=== PATIENT | male | born 1985 | race African-American/Black ===

== ENCOUNTER 2017-06-08 00:15 | Emergency (ER) | payer MEDICARE, OTHER ==
[~2017-06-08] VITALS: Ht 167.6 cm; Wt 100.0 kg
[~2017-06-08 00:15] MED LIST: BENZ0.5T PO; BENZ2 PO; CARB200T16 PO; HALO10 PO; HALO2CON PO; HALO5 PO; [UNRECOGNIZED DRUG - CODE] IM
[2017-06-08 00:17] VITALS: BP 142/72; PULSE 85; RESP 16; TEMP 98.4; O2SAT 96
[2017-06-08] MEDS ORDERED: HALO5TAB PO (00:32)
[2017-06-08] MEDS ORDERED: BENZ0.5T PO ×2 (00:32)
[2017-06-08] MEDS ORDERED: HALO10TA PO (00:32)
[2017-06-08] MEDS ORDERED: BACT800T5 PO (00:34)
--- NOTE | 2017-06-08 00:35 | PD ---
HPI Chief Complaint: Skin Problem Time Seen by Provider: 00:26 Travel History International Travel<30 days: No Contact w/Intl Traveler<30days: No Traveled to known affect area: No History of Present Illness HPI This is a 31-year-old male who presents to the emergency department with 1 week of a lump on his lower abdomen, constant, moderate severity, painful, with no drainage. He also had something on his back which is no longer there. He denies any fevers or chills. He says he feels like something is moving around inside his abdomen. PFSH Past Medical History Arthritis: No Asthma: Yes (CHILDHOOD) Anxiety: Yes Depression: Yes Heart Rhythm Problems: No High Cholesterol: No Chest Pain: No Congestive Heart Failure: No COPD: No Cerebrovascular Accident: No Diminished Hearing: No Endocrine: No GERD: No Genitourinary: No Hiatal Hernia: No Immune Disorder: No Musculoskeletal: No Neurologic: No Reproductive: No Respiratory: No Immunizations Current: Yes Migraines: No Schizophrenia: Yes Sleep Apnea: No Ulcer: No Past Surgical History Abdominal Surgery: No Cardiac Surgery: No Ear Surgery: No Endocrine Surgery: No Eye Surgery: No Genitourinary Surgery: No Gynecologic Surgery: No Oral Surgery: No Thoracic Surgery: No Other Surgery: Yes (SEE JPOD NOTES) Social History Alcohol Use: Yes (SOCC) Tobacco Use: Yes (1 PPD) Substance Use: Yes (WEED) Allergies-Medications (Allergen,Severity, Reaction): Coded Allergies: No Known Allergies (Verified Adverse Reaction, Unknown, 06/08/17) Reported Meds & Prescriptions Reported Meds & Active Scripts Active Benztropine Mesylate 2 Mg Tab 2 Mg PO HS 30 Days Haldol (Haloperidol) 10 Mg Tab 10 Mg PO HS 30 Days Reported Cogentin (Benztropine Mesylate) 0.5 Mg Tab 0.5 Mg PO BID Haldol (Haloperidol) 5 Mg Tab 5 Mg PO BID Review of Systems General / Constitutional: No: Fever, Chills Respiratory: No: Cough, Shortness of Breath Physical Exam Narrative GENERAL: Well-appearing, no acute distress, nontoxic SKIN: 3 cm indurated area on the right lower abdomen with some warmth HEAD: Atraumatic. Normocephalic. ENT: No nasal bleeding or discharge. Moist mucous membranes MUSCULOSKELETAL: No obvious deformities. No clubbing. No cyanosis. No edema. NEUROLOGICAL: Awake and alert. No obvious cranial nerve deficits. Motor grossly within normal limits. Normal speech. PSYCHIATRIC: Appropriate mood and affect; insight and judgment normal. Data Data Last Documented VS Vital Signs Date Time Temp Pulse Resp B/P (MAP) Pulse Ox O2 Delivery O2 Flow Rate FiO2 06/08/17 00:17 98.4 85 16 142/72 (95) 96 Room Air MDM Medical Decision Making Medical Screen Exam Complete: Yes Emergency Medical Condition: Yes Interpretation(s) Afebrile, no tachycardia, hypertensive Differential Diagnosis Abscess, folliculitis, cellulitis Narrative Course This is a 51-year-old male who presents to the emergency department with a small area of induration on the right lower abdomen which appears to be a folliculitis. I don't think it's large enough for incision and drainage. I think he benefit from some oral antibiotic therapy and topical warm compresses. I do think the patient's baseline psychiatric disease as contributing to his presentation here as he is fairly insistent that something may be moving around inside him and he wants me to take a picture of it. I reassured him that I think with warm compresses and antibiotic therapy this will improve. Diagnosis Primary Impression: Folliculitis Patient Instructions: General Instructions Additional Instructions: If you develop fever, increasing redness, warmth, or spreading of your infection , or severe pain return to the emergency department immediately as you may require antibiotics through your IV. Complete your course of antibiotics as prescribed. Apply a warm wash cloth four times per day to your lump. Med/Other Pt SpecificInfo: Prescription(s) given Scripts Sulfamethoxazole-Trimethoprim (Bactrim DS) 800-160 Mg Tab 1 TAB PO BID for Infection, #14 TAB 0 Refills Prov: Diamante Burnette MD 06/08/17 Disposition: 01 DISCHARGE HOME Condition: Stable Diamante Burnette MD Jun 08, 2017 00:35
== END 2017-06-08 00:47 | disposition home or self-care (01) ==
LOC: NEPD 00:15
DX: L73.9 Follicular disorder, unspecified (principal); F20.9 Schizophrenia, unspecified; J45.909 Unspecified asthma, uncomplicated; F41.9 Anxiety disorder, unspecified; F17.200 Nicotine dependence, unspecified, uncomplicated; Z79.899 Other long term (current) drug therapy
CPT/HCPCS: 99283

== ENCOUNTER 2017-07-11 10:24 | Inpatient (IN) | payer MEDICARE, OTHER ==
[~2017-07-11] VITALS: Ht 167.6 cm; Wt 93.8 kg
[~2017-07-11 10:24] MED LIST changes: +BACT800T5 PO; -BENZ2 PO; -HALO10 PO; +HALO10TA PO; -HALO5 PO; +HALO5TAB PO
[2017-07-11 10:27] VITALS: BP 158/94; PULSE 91; RESP 24; TEMP 98.1; O2SAT 97
--- NOTE | 2017-07-11 10:55 | PD ---
HPI Chief Complaint: Psychiatric Symptoms Time Seen by Provider: 10:47 Travel History International Travel<30 days: No Contact w/Intl Traveler<30days: No Traveled to known affect area: No History of Present Illness HPI 31-year-old male presents to emergency department with hallucinations and medication noncompliance. Patient denies any trauma, falls, loss of consciousness. When asked directly about his hallucinations patient states that "just because somebody is not the room doesn't mean that they're not talking." Patient says that nobody made him come today. Patient denies any recent illicit drugs. Patient is apparently off of his medications but is unable tell me what they are. Patient states that he might be taking Haldol and Cogentin. Patient denies fever, chills, chest pain, short of breath. Denies falls or any trauma. Denies any other issues. It is difficult to elicit history as patient is a fluctuating historian. PFSH Past Medical History Arthritis: No Asthma: Yes (CHILDHOOD) Anxiety: Yes Depression: Yes Heart Rhythm Problems: No High Cholesterol: No Chest Pain: No Congestive Heart Failure: No COPD: No Cerebrovascular Accident: No Diminished Hearing: No Endocrine: No GERD: No Genitourinary: No Hiatal Hernia: No Immune Disorder: No Musculoskeletal: No Neurologic: No Reproductive: No Respiratory: No Immunizations Current: Yes Migraines: No Schizophrenia: Yes Sleep Apnea: No Ulcer: No Past Surgical History Abdominal Surgery: No Cardiac Surgery: No Ear Surgery: No Endocrine Surgery: No Eye Surgery: No Genitourinary Surgery: No Gynecologic Surgery: No Oral Surgery: No Thoracic Surgery: No Other Surgery: Yes (SEE JPOD NOTES) Social History Alcohol Use: Yes (SOCC) Tobacco Use: Yes (1 PPD) Substance Use: Yes (WEED) Allergies-Medications (Allergen,Severity, Reaction): Coded Allergies: No Known Allergies (Verified Allergy, Unknown, 07/11/17) Reported Meds & Prescriptions Reported Meds & Active Scripts Active Reported Haloperidol 5 Mg Tab 5 Mg PO BID Benztropine (Benztropine Mesylate) 0.5 Mg Tab 0.5 Mg PO BID Review of Systems Except as stated in HPI: all other systems reviewed are Neg Physical Exam Narrative GENERAL: Well-developed well nourished in no apparent distress, frequent tics SKIN: Focused skin assessment warm/dry. HEAD: Atraumatic. Normocephalic. EYES: Pupils equal and round. No scleral icterus. No injection or drainage. EOMI ENT: No nasal bleeding or discharge. Mucous membranes pink and moist. Pharynx not injected, without tonsillar hypertrophy or exudates. NECK: Trachea midline. No JVD. CARDIOVASCULAR: Regular rate and rhythm. No murmur appreciated. RESPIRATORY: No accessory muscle use. Clear to auscultation. Breath sounds equal bilaterally. MUSCULOSKELETAL: No obvious deformities. No clubbing. No cyanosis. No edema. NEUROLOGICAL: Awake and alert. No obvious cranial nerve deficits. Motor grossly within normal limits. Normal speech. PSYCHIATRIC: Appropriate mood. Data Data Last Documented VS Vital Signs Date Time Temp Pulse Resp B/P (MAP) Pulse Ox O2 Delivery O2 Flow Rate FiO2 07/11/17 13:43 98.8 80 18 155/105 (122) 98 Room Air Orders Orders Complete Blood Count With Diff (07/11/17 10:55) Comprehensive Metabolic Panel (07/11/17 10:55) Thyroid Stimulating Hormone (07/11/17 10:55) Urinalysis - C+S If Indicated (07/11/17 10:55) Psych Screen (07/11/17 10:55) Drug Screen, Random Urine (07/11/17 10:55) Haloperidol (Haldol) (07/11/17 13:30) Diphenhydramine (Benadryl) (07/11/17 13:30) Diet Regular Basic (07/11/17 Dinner) Admit Order (Ed Use Only) (07/11/17 ) Labs Laboratory Tests Test 07/11/17 11:16 07/11/17 11:24 White Blood Count 10.1 TH/MM3 Red Blood Count 5.18 MIL/MM3 Hemoglobin 15.9 GM/DL Hematocrit 45.3 % Mean Corpuscular Volume 87.5 FL Mean Corpuscular Hemoglobin 30.7 PG Mean Corpuscular Hemoglobin Concent 35.1 % Red Cell Distribution Width 13.8 % Platelet Count 265 TH/MM3 Mean Platelet Volume 8.8 FL Neutrophils (%) (Auto) 63.4 % Lymphocytes (%) (Auto) 25.4 % Monocytes (%) (Auto) 8.6 % Eosinophils (%) (Auto) 1.7 % Basophils (%) (Auto) 0.9 % Neutrophils # (Auto) 6.4 TH/MM3 Lymphocytes # (Auto) 2.6 TH/MM3 Monocytes # (Auto) 0.9 TH/MM3 Eosinophils # (Auto) 0.2 TH/MM3 Basophils # (Auto) 0.1 TH/MM3 CBC Comment DIFF FINAL Differential Comment Blood Urea Nitrogen 8 MG/DL Creatinine 0.96 MG/DL Random Glucose 91 MG/DL Total Protein 8.1 GM/DL Albumin 4.7 GM/DL Calcium Level 9.2 MG/DL Alkaline Phosphatase 56 U/L Aspartate Amino Transf (AST/SGOT) 36 U/L Alanine Aminotransferase (ALT/SGPT) 41 U/L Total Bilirubin 0.5 MG/DL Sodium Level 139 MEQ/L Potassium Level 3.6 MEQ/L Chloride Level 105 MEQ/L Carbon Dioxide Level 26.1 MEQ/L Anion Gap 8 MEQ/L Estimat Glomerular Filtration Rate 112 ML/MIN Thyroid Stimulating Hormone 3rd Gen 2.400 uIU/ML Urine Color YELLOW Urine Turbidity CLEAR Urine pH 6.5 Urine Specific [place] 1.016 Urine Protein 100 mg/dL Urine Glucose (UA) NEG mg/dL Urine Ketones NEG mg/dL Urine Occult Blood SMALL Urine Nitrite NEG Urine Bilirubin NEG Urine Urobilinogen LESS THAN 2.0 MG/DL Urine Leukocyte Esterase NEG Urine RBC 1 /hpf Urine WBC LESS THAN 1 /hpf Urine Hyaline Casts 12 /lpf Urine Mucus FEW /lpf Microscopic Urinalysis Comment CULT NOT INDICATED Urine Opiates Screen NEG Urine Barbiturates Screen NEG Urine Amphetamines Screen NEG Urine Benzodiazepines Screen NEG Urine Cocaine Screen NEG Urine Cannabinoids Screen POS MDM Medical Decision Making Medical Screen Exam Complete: Yes Emergency Medical Condition: Yes Differential Diagnosis Medication noncompliance, schizophrenia, depression, and anxiety Narrative Course 31-year-old male presents to emergency department with hallucinations and medication noncompliance. Patient denies any trauma, falls, loss of consciousness. When asked directly about his hallucinations patient states that "just because somebody is not the room doesn't mean that they're not talking." Patient says that nobody made him come today. Patient denies any recent illicit drugs. Patient is apparently off of his medications but is unable tell me what they are. Patient states that he might be taking Haldol and Cogentin. Patient denies fever, chills, chest pain, short of breath. Denies falls or any trauma. Denies any other issues. It is difficult to elicit history as patient is a fluctuating historian. Vital signs stable Physical exam findings unremarkable. Patient was transferred to the psych department and became increasingly agitated. Patient required medication for sedation Benadryl and Haldol as he became increasingly agitated. There was a concern for patient's safety along with the staff safety. Patient eventually required a Vu Act to ensure his own safety. Patient was reported to be walking around the emergency department disrobed. CBC & BMP Diagram 07/11/17 11:16 Total Protein 8.1, Albumin 4.7, Calcium Level 9.2, Alkaline Phosphatase 56, Aspartate Amino Transf (AST/SGOT) 36, Alanine Aminotransferase (ALT/SGPT) 41, Total Bilirubin 0.5 Patient is cleared to see psych. Diagnosis Primary Impression: Noncompliance with medications Condition: Stable Mel Polanco Jul 11, 2017 10:55
[2017-07-11 11:32] LABS: AUTOMATED NEUTROPHIL # 6.4 TH/MM3 (1.8-7.7); BASOPHIL # 0.1 TH/MM3 (0-0.2); BASOPHIL % 0.9 % (0.0-2.0); EOSINOPHIL # 0.2 TH/MM3 (0-0.4); EOSINOPHIL % 1.7 % (0.0-4.0); HEMATOCRIT 45.3 % (39.0-51.0); HEMO FLAGS DIFF FINAL; LYMPH % 25.4 % (9.0-44.0); LYMPHOCYTE # 2.6 TH/MM3 (1.0-4.8); MEAN CELL VOLUME 87.5 FL (80.0-100.0); MEAN CORPUSCULAR HEMOGLOBIN 30.7 PG (27.0-34.0); MEAN CORPUSCULAR HGB CONC 35.1 % (32.0-36.0); MONO % 8.6 % (0.0-8.0); NEUT % 63.4 % (16.0-70.0); PLATELET COUNT 265 TH/MM3 (150-450); RED BLOOD COUNT 5.18 MIL/MM3 (4.50-5.90); RED CELL DISTRIBUTION WIDTH 13.8 % (11.6-17.2); WHITE BLOOD COUNT 10.1 TH/MM3 (4.0-11.0)
[2017-07-11 11:46] LABS: BLOOD, URINE SMALL (NEG); COMMENT (UR) CULT NOT INDICATED; CULTURE IF INDICATED CULT NOT INDICATED; GLUCOSE,URINE NEG (NEG); HYALINE CAST, URINE 12 /lpf (RARE); KETONE, URINE NEG (NEG); MUCUS URINE FEW /lpf (OCC); NITRITE,URINE NEG (NEG); PH, URINE 6.5 (5.0-8.5); URINE COLOR YELLOW (YELLW/STRAW)
[2017-07-11 11:48] LABS: ALT (GPT) 41 U/L (12-78); ANION GAP 8 MEQ/L (5-15); AST (GOT) 36 U/L (15-37); BICARBONATE 26.1 MEQ/L (21.0-32.0); BLOOD UREA NITROGEN 8 MG/DL (7-18); CHLORIDE 105 MEQ/L (98-107); GLOMERULAR FILTRATION RATE 112 ML/MIN (>89); POTASSIUM 3.6 MEQ/L (3.5-5.1); SODIUM (NA) 139 MEQ/L (136-145)
[2017-07-11 11:57] LABS: ALKALINE PHOSPHATASE 56 U/L (45-117); TOTAL BILIRUBIN ADULT 0.5 MG/DL (0.2-1.0)
[2017-07-11] MEDS ORDERED: HALOPERIDOL 10 MG TAB PO ONE (13:30)
[2017-07-11] MEDS ORDERED: diphenhydrAMINE HCL 50 MG CAP PO ONE (13:30)
[2017-07-11 13:43] VITALS: BP 155/105; PULSE 80; RESP 18; TEMP 98.8; O2SAT 98
[2017-07-11] MEDS: BENZTROPINE MESYLATE 1 MG TAB PO SCH (21:00)
[2017-07-11] MEDS: HALOPERIDOL 5 MG TAB PO SCH (21:00)
[2017-07-11] MEDS ORDERED: PILL SPLITTER OTHER PRN (21:00)
[2017-07-11 21:25] VITALS: BP 148/88; PULSE 55; RESP 16; TEMP 98.2; O2SAT 97
[2017-07-12 06:23] VITALS: BP 133/90; PULSE 54; RESP 16; TEMP 98.6; O2SAT 100
[2017-07-12] MEDS: BENZTROPINE MESYLATE 1 MG TAB PO SCH ×2 (08:33→21:26)
[2017-07-12] MEDS: HALOPERIDOL 5 MG TAB PO SCH ×2 (08:34→21:26)
[2017-07-12] MEDS ORDERED: diphenhydrAMINE HCL 50 MG CAP PO PRN (15:15)
[2017-07-12] MEDS ORDERED: hydrOXYzine HCL 50 MG TAB PO PRN (15:15)
[2017-07-12] MEDS ORDERED: ACETAMINOPHEN 325 MG TAB PO PRN (15:15)
[2017-07-12] MEDS ORDERED: MAGNESIUM HYDROXIDE SUSP 30 ML CUP PO PRN (15:15)
[2017-07-12] MEDS ORDERED: ALUMINUM/MAGNESIUM/SIMETH 30 ML CUP PO PRN (15:15)
--- NOTE | 2017-07-12 15:40 | HHI.HP ---
Provisional Diagnosis Admission Date Jul 11, 2017 at 15:58 [place]. Schizoaffective disorder bipolar type, marijuana abuse Certification of Person's Competence To Provide Express and Informed Consent I have personally examined Kevin Alicia , a person being served at [facility] on, Jul 12, 2017 15:31. Express and informed consent means consent voluntarily given in writing, by a competent person, after sufficient explanation and disclosure of the subject matter involved to enable the person to make a knowing and willful decision without any element of force, fraud, deceit, duress, or other form of constraint or coercion. This person is 18 years of age or older, is not now known to be incompetent to consent to treatment with a guardian advocate, and does not have a health care surrogate or proxy currently making medical treatment decisions. I have found this person to be one of the following: [] Competent to provide express and informed consent, as defined above, for voluntary admission to this facility and is competent to provide express and informed consent for treatment. He/she has the consistent capacity to make well reasoned, willful, and knowing decisions concerning his or her medical or mental health treatment. The person fully and consistently understands the purpose of the admission for examination/placement and is fully capable of personally exercising all rights [place] [] Incompetent to provide express and informed consent to voluntary admission, and this is incompetent to provide express and informed consent to treatment. The person must be transferred to involuntary status and a petition for a guardian advocate filed with the Circuit Court. [xxx] Refusing to provide express and informed consent to voluntary admission but is competent to provide express and informed consent for treatment. The person must be discharged or transferred to involuntary status. Form shall be completed within 24 hours of a person's arrival at the receiving facility and filed in the clinical record of each person: 1. Admitted on a voluntary basis 2. Permitted to provide express and informed consent to his/her own treatment 3. Allowed to transfer from involuntary to voluntary status 4. Prior to permitting a person to consent to his or her own treatment after having been previously found incompetent to consent to treatment. History of Present Illness Capacity: Lacks Capacity (patient less capacity significant for admission patient has capacity to sign for medication) HPI Patient is a 31-year-old well-known post multiple prior contacts and she under Vu act at [facility] services [place] by Dr. woodson dated March 11 1:30 PM stating patient does not answer pertinent questions not taking medication potential harm to self and others. And screened in the ED urine tox positive positive for marijuana. At the present time patient laying quietly in his room [id number] nurse having present throughout session patient did recognize me from prior contacts. Continues been home since getting out of [facility] in August has some contact with his mother but he states he lives with his girlfriend. It appears she has been noncompliant with medications he says it doesn't like the way it slows him. Acknowledges, somewhat reluctantly, frequent use of marijuana. He is vague about other drug use. He is vague about any auditory hallucinations. But appears to be responding to internal stimuli. He does denies suicidality homicidality. At the present time patient does meet criteria for involuntary psychiatric hospitalization of the Vu act I'll do first opinion request second opinion. I feel he does have capacity to sign for medication. Hopeless via short stay with him stabilizing with medications in a firm through to follow-up through [facility] act Review of Systems Constitutional: DENIES: Diaphoretic episodes, Fatigue, Fever, Weight gain, Weight loss, Chills, Dizziness, Change in appetite, Night Sweats Endocrine: DENIES: Heat/cold intolerance, Polydipsia, Polyuria, Polyphagia Eyes: DENIES: Blurred vision, Diplopia, Eye inflammation, Eye pain, Vision loss , Photosensitivity, Double Vision Ears, nose, mouth, throat: DENIES: Tinnitus, Hearing loss, Vertigo, Nasal discharge, Oral lesions, Throat pain, Hoarseness, Ear Pain, Running Nose, Epistaxis, Sinus Pain, Toothache, Odynophagia Respiratory: DENIES: Apneas, Cough, Snoring, Wheezing, Hemoptysis, Sputum production, Shortness of breath Cardiovascular: DENIES: Chest pain, Palpitations, Syncope, Dyspnea on Exertion , PND, Lower Extremity Edema, Orthopnea, Claudication Gastrointestinal: DENIES: Abdominal pain, Black stools, Bloody stools, Constipation, Diarrhea, Nausea, Vomiting, Difficulty Swallowing, Anorexia Genitourinary: DENIES: Sexual dysfunction, Urinary frequency, Urinary incontinence, Urgency, Hematuria, Dysuria, Nocturia, Penile Discharge, Testicular Pain, Testicular Swelling Musculoskeletal: DENIES: Joint pain, Muscle aches, Stiffness, Joint Swelling, Back pain, Neck pain Integumentary: DENIES: Abnormal pigmentation, Nail changes, Pruritus, Rash Hematologic/lymphatic: DENIES: Bruising, Lymphadenopathy Immunologic/allergic: DENIES: Eczema, Urticaria Neurologic: DENIES: Abnormal gait, Headache, Localized weakness, Paresthesias, Seizures, Speech Problems, Tremor, Poor Balance Psychiatric: COMPLAINS OF: Hallucinations (vague auditory) Past Psych History Psychological trauma history Patient denies Violence risk - others (6 mos) Local appears somewhat vigilant and paranoid Violence risk - self (6 mos) Low Substance Abuse History Drugs/Alcohol past 12 months Patient chronic marijuana user Past Family Social History Coded Allergies: No Known Allergies (Verified Allergy, Unknown, 07/11/17) Reported Medications Haloperidol (Haloperidol) 5 Mg Tab, 5 MG PO BID, TAB 0 Refills 06/08/17 Benztropine (Benztropine) 0.5 Mg Tab, 0.5 MG PO BID, #60 TAB 0 Refills 06/08/17 Discontinued Reported Medications Haloperidol (Haloperidol) 10 Mg Tab, 10 MG PO HS, TAB 0 Refills 06/08/17 Benztropine (Benztropine) 0.5 Mg Tab, 2 MG PO HS, #30 TAB 0 Refills 06/08/17 Discontinued Scripts Sulfamethoxazole-Trimethoprim (Bactrim DS) 800-160 Mg Tab, 1 TAB PO BID for Infection, #14 TAB 0 Refills Prov:Diamante Burnette MD 06/08/17 Current Medications Medications (Trade) Dose Ordered Sig/Sanya Route Start Time Stop Time Status Last Admin (Cogentin) 0.5 mg BID PO 07/11/17 21:00 07/12/17 08:33 (Haldol) 5 mg BID PO 07/11/17 21:00 07/12/17 08:34 (Pill Splitter) 1 ea UNSCH PRN OTHER 07/11/17 21:00 (Benadryl) 50 mg HS PRN PO 07/12/17 15:15 (Tylenol) 650 mg Q4H PRN PO 07/12/17 15:15 (Milk Of Magnesia Liq) 30 ml DAILY PRN PO 07/12/17 15:15 (Mag-Al Plus Susp Liq) 30 ml Q6H PRN PO 07/12/17 15:15 (Atarax) 50 mg Q6H PRN PO 07/12/17 15:15 Family Psych History Patient denies Social History Is Britta girlfriend long history mental illness Patient's Strengths (min. 2) Patient verbal labile axis health care Physical Exam Patient seen screened in ED exam reviewed and agreed with. Patient sitting quietly in his room he is in no acute distress, no rash or distress, no complaints abdominal pain, patient was all 4 extremities without difficulty. No abnormal motor movements noted Vital Signs Vital Signs Date Time Temp Pulse Resp B/P (MAP) Pulse Ox O2 Delivery O2 Flow Rate FiO2 07/12/17 06:23 98.6 54 16 133/90 (104) 100 07/11/17 13:43 Room Air Mental Status Examination Appearance: Appropriate Consciousness: Alert Orientation: x4 Motor Activity: Normal gait Speech: Unremarkable Language: Adequate Fund of Knowledge: Adequate Attention and Concentration: Adequate Memory: Unremarkable Mood: Irritable Affect: Other (slight increase range and intensity) Thought Process & Associations: Linear Thought Content: Bizarre thinking, Ideas of reference Hallucination Type: None (though he appears to be responding to internal stimuli) Delusion Type: Paranoid Suicidal Ideation: No Suicidal Plan: No Suicidal Intention: No Homicidal Ideation: No Homicidal Plan: No Homicidal Intention: No Insight: Poor Judgment: Poor Assessment & Plan Problem List: (1) Schizoaffective disorder, bipolar type ICD Codes: F25.0 - Schizoaffective disorder, bipolar type (2) Marijuana abuse ICD Codes: F12.10 - Cannabis abuse, uncomplicated Assessment & Plan Estimated LOS: days this time patient meets criteria for involuntary psychiatric hospital addition of the Vu act I'll do first opinion request second opinion. Will allow for significant medications. We'll restart his medications currently are noted reconciliation. Hopeless to be fairly short stay and return to the community Discharge Planning To be determined Request HC Surrog/Guard Advoc?: Joe Ca MD Jul 12, 2017 15:40
[2017-07-12 17:52] VITALS: BP 137/69; PULSE 67; RESP 17; TEMP 98.5; O2SAT 97
[2017-07-12] MEDS ORDERED: BENZTROPINE MESYLATE 1 MG TAB PO SCH (21:00)
[2017-07-12] MEDS ORDERED: HALOPERIDOL 5 MG TAB PO SCH (21:00)
[2017-07-13 05:45] VITALS: BP 131/63; PULSE 50; RESP 17; TEMP 98.6; O2SAT 100
[2017-07-13] MEDS: HALOPERIDOL 5 MG TAB PO SCH ×2 (08:45→20:17)
[2017-07-13] MEDS: BENZTROPINE MESYLATE 1 MG TAB PO SCH ×2 (08:45→20:17)
--- NOTE | 2017-07-13 12:37 | HHI.PYPN ---
Subjective Remarks Is a request for second opinion. Admission note was reviewed and I agree with its contents. Case was reviewed with nursing and patient was evaluated. Patient minimizes his behavior before admission. He does admit to poor compliance his medication. He is behaving well on the unit and has not been aggressive with other patients. Minimizing his history of psychotic symptoms. Does deny auditory visual hallucinations today Mental Status Examination Appearance: Appropriate Consciousness: Alert Orientation: x4 Motor Activity: Normal gait Speech: Unremarkable Language: Adequate Fund of Knowledge: Adequate Attention and Concentration: Adequate Memory: Unremarkable Mood: Oppositional, Irritable Affect: Other (slight increase range and intensity) Thought Process & Associations: Linear Thought Content: Bizarre thinking, Ideas of reference Hallucination Type: None (though he appears to be responding to internal stimuli) Delusion Type: Paranoid Suicidal Ideation: No Suicidal Plan: No Suicidal Intention: No Homicidal Ideation: No Homicidal Plan: No Homicidal Intention: No Insight: Poor Judgment: Poor Results Vitals/IOs Vital Signs Date Time Temp Pulse Resp B/P (MAP) Pulse Ox O2 Delivery O2 Flow Rate FiO2 07/13/17 05:45 98.6 50 17 131/63 (85) 100 07/11/17 13:43 Room Air Assessment & Plan Problem List: (1) Schizoaffective disorder, bipolar type ICD Codes: F25.0 - Schizoaffective disorder, bipolar type (2) Marijuana abuse ICD Codes: F12.10 - Cannabis abuse, uncomplicated Assessment & Plan Agree with the first opinion to continue petition. Criteria include acute psychosis Justification for Cont. Inpt. Patient would decompensate in a less restrictive setting Request HC Surrog/Guard Advoc?: No Tra Whitfield DO Jul 13, 2017 12:37
[2017-07-13 18:00] VITALS: BP 138/85; PULSE 55; RESP 17; TEMP 98.7
[2017-07-14 05:44] VITALS: BP 125/56; PULSE 50; RESP 16; TEMP 98.2; O2SAT 100
[2017-07-14] MEDS: BENZTROPINE MESYLATE 1 MG TAB PO SCH ×2 (08:02→20:10)
[2017-07-14] MEDS: HALOPERIDOL 5 MG TAB PO SCH ×2 (08:03→20:11)
[2017-07-14 08:37] LABS: ANION GAP 7 MEQ/L (5-15); BICARBONATE 28.1 MEQ/L (21.0-32.0); BLOOD UREA NITROGEN 9 MG/DL (7-18); CHLORIDE 101 MEQ/L (98-107); GLOMERULAR FILTRATION RATE 124 ML/MIN (>89); SODIUM (NA) 136 MEQ/L (136-145)
[2017-07-14 08:39] LABS: HDL CHOLESTEROL 37.8 MG/DL (40.0-60.0); LDL CHOLESTEROL 123 MG/DL (0-99)
--- NOTE | 2017-07-14 09:12 | HHI.PYPN ---
Subjective Remarks Patient seen and examined in coverage with nurse. Chart reviewed. Case discussed with nursing staff reports the patient has been no behavioral problem on the unit and has been cooperative and medication compliant. On my examination today, the patient appears to be in good spirits. He is smiling and appears euthymic. He tells me that the only reason he was brought into the hospital was because "I just get mad sometimes." He denies any suicidal or homicidal ideation. Denies any audiovisual hallucinations. Denies any side effects from medications. No physical complaints. Review of Systems Except as stated in HPI: all other systems reviewed are Neg Mental Status Examination Appearance: Appropriate Consciousness: Alert Orientation: x4 Motor Activity: Normal gait, Other (no motor abnormalities noted) Speech: Unremarkable Language: Adequate Fund of Knowledge: Adequate Attention and Concentration: Adequate Memory: Unremarkable Mood: Appropriate Affect: Euthymic, Other (slight increase range and intensity) Thought Process & Associations: Intact, Logical, Linear Thought Content: Appropriate Hallucination Type: None Delusion Type: None Suicidal Ideation: No Suicidal Plan: No Suicidal Intention: No Homicidal Ideation: No Homicidal Plan: No Homicidal Intention: No Insight: Poor Judgment: Poor Results Labs Test 07/14/17 07:40 Blood Urea Nitrogen 9 MG/DL Creatinine 0.88 MG/DL Random Glucose 86 MG/DL Calcium Level 9.2 MG/DL Sodium Level 136 MEQ/L Potassium Level 4.0 MEQ/L Chloride Level 101 MEQ/L Carbon Dioxide Level 28.1 MEQ/L Anion Gap 7 MEQ/L Estimat Glomerular Filtration Rate 124 ML/MIN Triglycerides Level 74 MG/DL Cholesterol Level 176 MG/DL LDL Cholesterol 123 MG/DL HDL Cholesterol 37.8 MG/DL Cholesterol/HDL Ratio 4.65 RATIO Labs reviewed. Vitals/IOs Vital Signs Date Time Temp Pulse Resp B/P (MAP) Pulse Ox O2 Delivery O2 Flow Rate FiO2 07/14/17 05:44 98.2 50 16 125/56 (79) 100 07/11/17 13:43 Room Air Assessment & Plan Problem List: (1) Schizoaffective disorder, bipolar type ICD Codes: F25.0 - Schizoaffective disorder, bipolar type (2) Marijuana abuse ICD Codes: F12.10 - Cannabis abuse, uncomplicated Assessment & Plan Patient appears to be responding well with respect to psychosis on the Haldol. I will continue this agent as ordered. Continue to monitor on the inpatient unit. Continue other medications and care as ordered. Justification for Cont. Inpt. Risk for decompensation in less restrictive environment. Discharge Planning Pending psychiatric stabilization. Request HC Surrog/Guard Advoc?: No Douglas Bauman MD Jul 14, 2017 09:12
[2017-07-14 12:07] LABS: HEMOGLOBIN A1a 0.8 %; HEMOGLOBIN A1b 1.5 %; HEMOGLOBIN Ao 86.1 %; HEMOGLOBIN P3 3.5 %
[2017-07-14 18:09] VITALS: BP 133/59; PULSE 60; RESP 16; TEMP 98.8; O2SAT 98
[2017-07-15 06:13] VITALS: BP 136/78; PULSE 56; RESP 18; TEMP 97.8; O2SAT 100
[2017-07-15] MEDS: HALOPERIDOL 5 MG TAB PO SCH (09:11)
[2017-07-15] MEDS: BENZTROPINE MESYLATE 1 MG TAB PO SCH (09:11)
[2017-07-15] MEDS ORDERED: HALO5TAB PO (09:46)
[2017-07-15] MEDS ORDERED: BENZ0.5T PO (09:46)
--- NOTE | 2017-07-15 09:52 | HHI.DS ---
Psychiatry Discharge Summary Inpatient Psychiatric care?: Yes Advance Directive: No Reason Not Provided: Due to Patient Condition Mental Health AdvanceDirective: No Health Care Proxy: No Admission Admission Date Jul 11, 2017 at 15:58 Admission Diagnosis: (1) Schizoaffective disorder, bipolar type ICD Code: F25.0 - Schizoaffective disorder, bipolar type (2) Marijuana abuse ICD Code: F12.10 - Cannabis abuse, uncomplicated Brief History Patient is a 31-year-old well-known post multiple prior contacts and she under Vu act at [facility] by Dr. woodson dated March 11 1:30 PM stating patient does not answer pertinent questions not taking medication potential harm to self and others. And screened in the ED urine tox positive positive for marijuana. At the present time patient laying quietly in his room [id number] nurse having present throughout session patient did recognize me from prior contacts. Continues been home since getting out of long-term in August has some contact with his mother but he states he lives with his girlfriend. It appears she has been noncompliant with medications he says it doesn't like the way it slows him. Acknowledges, somewhat reluctantly, frequent use of marijuana. He is vague about other drug use. He is vague about any auditory hallucinations. But appears to be responding to internal stimuli. He does denies suicidality homicidality. At the present time patient does meet criteria for involuntary psychiatric hospitalization of the Vu act I'll do first opinion request second opinion. I feel he does have capacity to sign for medication. Hopeless via short stay with him stabilizing with medications in a firm through to follow-up through Manny Marchman act Tobacco Use In Past 30 Days: 5 or More Cigarettes/Day Alcohol Use: Monthly or Less Hospital Course Patient was admitted to a locked, inpatient psychiatric unit. Appropriate precautions were in place throughout patient's hospital stay. Patient was seen and examined on the unit by psychiatry and also visited by counselor. Psychotropic medications were adjusted. Patient was resumed on Haldol and Cogentin. He tolerated these medications well without side effects. Patient had rapid improvement in presenting psychiatric symptomatology during the course of his hospital stay. There was no evidence of any suicidality or homicidality on the inpatient unit. The patient's behavior improved with the benefit of psychopharmacologic treatment. On the day of discharge: Patient seen and examined with nurse. Chart reviewed. Case discussed in treatment team with counselor and occupational therapist who note that the patient has been appropriate in groups. Nurse and floor staff note that the patient is doing very well on the unit and has been no behavioral problem. On my examination today, the patient is requesting discharge from the inpatient psychiatric unit today. He denies any suicidal or homicidal ideation, intent or plan on direct questioning and contracts for safety. Mood is stable and I can elicit no depressive or hypomanic/manic symptoms in this patient at this time. He denies any audiovisual hallucinations, and I can elicit no delusional beliefs. There is no evidence of any impairment in reality construction. He denies side effects from medications. I have strongly recommended that he consider long-acting injectable antipsychotic as I suspect medication nonadherence was a route cdl driver for his presentation here. He was given capacity to consent for medications at admission, and there is no evidence that such capacity is lacking now. He declines long-acting injectable antipsychotic, and I fear this is rooted in poor insight and judgment as he openly says that he wishes to have the flexibility to stop his antipsychotic medication when he wants "to smoke and drink." I have counseled the patient that nonadherence with psychotropic medications and substance use place him at high risk for relapse to psychotic illness and rehospitalization and have urged him to reconsider long-acting injectable antipsychotic, but he continues to decline at this time. He has no physical complaints. Suicide and violence risk assessment on day of discharge both suggest lower imminent risk, and the patient 's level of function is adequate for outpatient care. Patient's substance use and poor insight/nonadherence both confer chronic but not acute or imminent risk and would not be ameliorated by a longer inpatient psychiatric hospital stay. The patient does not meet criteria for ongoing involuntary psychiatric hospitalization at this time and is requesting discharge from the inpatient psychiatric unit today. I have no basis to retain him over his objection on the inpatient unit any longer. I will arrange for his discharge home today with psychiatric follow-up as arranged by counselor. Patient is also to follow- up with primary care. I counseled the patient to abstain from substances of abuse. Patient should also pursue chemical dependency evaluation and treatment on an outpatient basis. I counseled patient to return to the psychiatric emergency room for any concerning psychiatric symptoms as part of the general safety plan. Results Blood Pressure 136 / 78 Vital Signs Date Time Temp Pulse Resp B/P (MAP) Pulse Ox O2 Delivery O2 Flow Rate FiO2 07/15/17 06:13 97.8 56 18 136/78 (97) 100 07/11/17 13:43 Room Air Laboratory Tests Test 07/14/17 07:40 LDL Cholesterol 123 MG/DL (0-99) HDL Cholesterol 37.8 MG/DL (40.0-60.0) Laboratory Results Test 07/14/17 07:40 Cholesterol Level 176 MG/DL (120-200) HDL Cholesterol 37.8 MG/DL (40.0-60.0) Hemoglobin A1c 5.4 % (4.3-6.0) LDL Cholesterol 123 MG/DL (0-99) Triglycerides Level 74 MG/DL (42-150) Summary of Procedures None done Imaging None done Pending results at discharge: No Medications # of Antipsychotic meds at D/C: 1 Approp Antipsych med options 1 - Minimum of three failed multiple trials of monotherapy. 2 - Documented plan to taper to monotherapy due to previous use of multiple meds OR cross-taper in progress at D/C. 3 - Documentation of augmentation of Clozapine. 4 - Justification other than those listed in allowable values 1-3, document here : Discharge Discharge Date: Jul 15, 2017 Discharge Diagnosis: (1) Schizoaffective disorder, bipolar type Diagnosis: Principal (stabilized. Suspect significant component of drug- induced psychotic disorder) ICD Code: F25.0 - Schizoaffective disorder, bipolar type (2) Marijuana abuse Diagnosis: Secondary (counseled to quit) ICD Code: F12.10 - Cannabis abuse, uncomplicated Pt Condition on Discharge: Stable Discharge Disposition: Discharge Home Discharge Instructions Diet Instructions: As Tolerated, No Restrictions Activities you can perform: Weight Bearing as Hailey Scheduled Appointment: as per counselor's notes Continued Medications: Benztropine (Benztropine) 0.5 Mg Tab 0.5 MG PO BID for Side effect management for 15 Days, #30 TAB 1 Refill (This prescription has been renewed) Haloperidol (Haloperidol) 5 Mg Tab 5 MG PO BID for Mental Health for 15 Days, #30 TAB 1 Refill (This prescription has been renewed) Discharge Time > 30 minutes Mental Status Examination Appearance: Appropriate, Well dressed/well groomed Consciousness: Alert Orientation: x4 Motor Activity: Normal gait, Other (no abnormal motor movements noted. No hand tremor, no dystonia, no dyskinesia.) Speech: Unremarkable Language: Adequate Fund of Knowledge: Adequate Attention and Concentration: Adequate Memory: Unremarkable Mood: Appropriate Affect: Appropriate Thought Process & Associations: Intact, Logical, Goal directed, Linear Thought Content: Appropriate Hallucination Type: None (denies AVH and does not appear internally stimulated. ) Delusion Type: None Suicidal Ideation: No Suicidal Plan: No Suicidal Intention: No Homicidal Ideation: No Homicidal Plan: No Homicidal Intention: No Insight: Poor (chronic condition) Judgment: Poor (chronic condition) Discharge/Advance Care Plan Health Problems: (1) Schizoaffective disorder, bipolar type (2) Marijuana abuse Goals to promote your health * To prevent worsening of your condition and complications * To maintain your health at the optimal level Directions to meet your goals Take your medications as prescribed Follow your dietary instruction Follow activity as directed Keep your appointments as scheduled Take your immunizations and boosters as scheduled If your symptoms worsen call your PCP, if no PCP go to Urgent Care Center or Emergency Room For 10/02 questions related to your inpatient stay or results of tests pending at discharge, please contact Dr. Douglas Bauman at Smoking is Dangerous to Your Health. Avoid second hand smoking Douglas Bauman MD Jul 15, 2017 09:52
--- NOTE | 2017-07-15 10:58 | PD.TTN ---
Patient Problems 1. Discharge planning 2. Medication compliance 3. Knowledge deficit 4. Lack of coping skills Progress Toward Goals Provider Present: Dr. Mandy Bauman Provider Input: Pt will be discharged today. Nurse(s) Present: Winsome Gonzalez RN Nurse(s) Input: Pt will be discharged today. Psychiatric Counselors Present: WALLY Cartagena Psych Therapist Input: Pt will be discharged home today and will be provided outpatient follow up appointment with [facility]. He states he will take his scripts and fill them there using his insurance. Group Spec/RT/OT/CRAIN Present: BREANN Weaver Group Spec/RT/OT/CRAIN Input: Pt attends select groups appropriately and is seclusive to room. Discharge Plan [facility] Pt will return to his home today and will be linked with an [facility] outpatient follow up appointment. Documentation Scribe: WALLY Cartagena Jonathan LMHC Jul 15, 2017 10:58
== END 2017-07-15 11:25 | disposition home or self-care (01) | DRG 885 ==
LOC: NEPD 10:24 → NEDA 15:58 → H270 19:47
PROVIDERS: ADMIT Psychiatry & Neurology Psychiatry; ATTEND Psychiatry & Neurology Psychiatry
DX: F25.0 Schizoaffective disorder, bipolar type (principal); Z91.14 Patient's other noncompliance with medication regimen; F41.9 Anxiety disorder, unspecified; F12.10 Cannabis abuse, uncomplicated; F17.210 Nicotine dependence, cigarettes, uncomplicated
CPT/HCPCS: 80048; 80053; 80061; 80307; 81001; 83036; 84443; 85025; Q0163

== ENCOUNTER 2017-07-24 03:56 | Emergency (ER) | payer MEDICARE, OTHER ==
[~2017-07-24] VITALS: Ht 170.2 cm; Wt 88.4 kg
[~2017-07-24 03:56] MED LIST changes: -BACT800T5 PO; -HALO10TA PO
--- NOTE | 2017-07-24 04:07 | PD ---
HPI Chief Complaint: ba Time Seen by Provider: 04:05 Travel History International Travel<30 days: No Contact w/Intl Traveler<30days: No Traveled to known affect area: No History of Present Illness HPI 31-year-old with history of schizoaffective disorder presents emergency department under Vu act for psychiatric evaluation. Patient offers no history regarding why he is here. He is acutely psychotic. Per report, patient has not been taking his medication. He denies any needs at this time. [facility] Past Medical History Arthritis: No Asthma: Yes (CHILDHOOD) Anxiety: Yes Depression: Yes Heart Rhythm Problems: No High Cholesterol: No Chest Pain: No Congestive Heart Failure: No COPD: No Cerebrovascular Accident: No Diminished Hearing: No Endocrine: No GERD: No Genitourinary: No Hiatal Hernia: No Immune Disorder: No Musculoskeletal: No Neurologic: No Psychiatric: Yes Reproductive: No Respiratory: No Immunizations Current: Yes Migraines: No Schizophrenia: Yes Sleep Apnea: No Ulcer: No Past Surgical History Abdominal Surgery: No Cardiac Surgery: No Ear Surgery: No Endocrine Surgery: No Eye Surgery: No Genitourinary Surgery: No Gynecologic Surgery: No Oral Surgery: No Thoracic Surgery: No Other Surgery: Yes (SEE JPOD NOTES) Social History Alcohol Use: Yes (SOCC) Tobacco Use: Yes (1 PPD) Substance Use: Yes Allergies-Medications (Allergen,Severity, Reaction): Coded Allergies: No Known Allergies (Verified Allergy, Unknown, 07/11/17) Reported Meds & Prescriptions Reported Meds & Active Scripts Active Haloperidol 5 Mg Tab 5 Mg PO BID 15 Days Benztropine (Benztropine Mesylate) 0.5 Mg Tab 0.5 Mg PO BID 15 Days Review of Systems Except as stated in HPI: all other systems reviewed are Neg Physical Exam Narrative GENERAL: Well-nourished male patient, acutely psychotic, but appears in no acute distress. SKIN: Focused skin assessment warm/dry. HEAD: Atraumatic. Normocephalic. EYES: Pupils equal and round. No scleral icterus. No injection or drainage. ENT: No nasal bleeding or discharge. Mucous membranes pink and moist. NECK: Trachea midline. No JVD. CARDIOVASCULAR: Regular rate and rhythm. No murmur appreciated. RESPIRATORY: No accessory muscle use. Clear to auscultation. Breath sounds equal bilaterally. GASTROINTESTINAL: Abdomen soft, non-tender, nondistended. Hepatic and splenic margins not palpable. MUSCULOSKELETAL: No obvious deformities. No clubbing. No cyanosis. No edema. NEUROLOGICAL: Awake and alert. No obvious cranial nerve deficits. Motor grossly within normal limits. Normal speech. Data Data Last Documented VS Vital Signs Date Time Temp Pulse Resp B/P (MAP) Pulse Ox O2 Delivery O2 Flow Rate FiO2 07/24/17 04:18 98.2 80 18 139/96 (110) 98 Orders Orders Complete Blood Count With Diff (07/24/17 04:05) Basic Metabolic Panel (Bmp) (07/24/17 04:05) Psych Screen (07/24/17 04:05) Drug Screen, Random Urine (07/24/17 04:05) Alcohol (Ethanol) (07/24/17 04:05) Olanzapine Inj (Zyprexa Inj) (07/24/17 04:30) Restraints Violent (07/24/17 05:01) Labs Laboratory Tests Test 07/24/17 04:10 Urine Opiates Screen NEG Urine Barbiturates Screen NEG Urine Amphetamines Screen NEG Urine Benzodiazepines Screen NEG Urine Cocaine Screen NEG Urine Cannabinoids Screen POS MDM Medical Decision Making Medical Screen Exam Complete: Yes Emergency Medical Condition: Yes Medical Record Reviewed: Yes Differential Diagnosis Mood disorder versus personality disorder versus adjustment reaction disorder versus substance abuse Narrative Course 31-year-old male brought to the emergency department under Vu act for psychiatric evaluation. Patient has history of schizophrenia and has not been taking his medications. He does appear acutely psychotic. He is sexually inappropriate towards myself and staff. He is walking around the unit without his clothes on. Patient is saying statements that do not make any sense. Patient is refusing lab work. He is given IM Zyprexa and escorted to the psychiatric pod. He is medically cleared at this time.. Diagnosis Primary Impression: Schizophrenia, paranoid type Condition: Stable Toya Ware Jul 24, 2017 04:07
[2017-07-24 04:18] VITALS: BP 139/96; PULSE 80; RESP 18; TEMP 98.2; O2SAT 98
[2017-07-24] MEDS ORDERED: OLANZapine IM 10 MG VIAL IM ONE (04:30)
[2017-07-24 06:00] VITALS: BP 129/90; PULSE 90; RESP 18; O2SAT 99
[2017-07-24 12:15] VITALS: BP 134/76; PULSE 84; RESP 18; O2SAT 98
[2017-07-24 13:48] VITALS: BP 134/76; PULSE 84; RESP 18; O2SAT 98
--- NOTE | 2017-07-24 14:09 | PD ---
Physical Exam Time Seen by Provider: 14:06 Narrative ROSALINA Marmolejo has evaluated the patient, lifted the Vu act and cleared the patient for discharge. Data Data Last Documented VS Vital Signs Date Time Temp Pulse Resp B/P (MAP) Pulse Ox O2 Delivery O2 Flow Rate FiO2 07/24/17 13:48 84 18 134/76 (95) 98 Room Air 07/24/17 04:18 98.2 Orders Orders Complete Blood Count With Diff (07/24/17 04:05) Basic Metabolic Panel (Bmp) (07/24/17 04:05) Psych Screen (07/24/17 04:05) Drug Screen, Random Urine (07/24/17 04:05) Alcohol (Ethanol) (07/24/17 04:05) Olanzapine Inj (Zyprexa Inj) (07/24/17 04:30) Restraints Violent (07/24/17 05:01) Diet Regular Basic (07/24/17 Breakfast) Diet Regular Basic (07/24/17 Lunch) Ed Discharge Order (07/24/17 14:09) Labs Laboratory Tests Test 07/24/17 04:10 Urine Opiates Screen NEG Urine Barbiturates Screen NEG Urine Amphetamines Screen NEG Urine Benzodiazepines Screen NEG Urine Cocaine Screen NEG Urine Cannabinoids Screen POS MDM Supervised Visit with KELLY: No Narrative Course ROSALINA Marmolejo has evaluated the patient, lifted the Vu act and cleared the patient for discharge. Patient contracts safety. Denies suicidal or homicidal ideations. Patient will be provided community resource packet to /BETO for follow-up. Has friends and family for support. Patient was medically cleared by alternate provider prior to psych screening. Patient has been evaluated by psychiatry and and is now cleared for discharge. Diagnosis Primary Impression: Schizophrenia, paranoid type Referrals: ACT (Out patient) [facility] Primary Care Physician Psychiatrist [facility] Patient Instructions: General Instructions, Schizophrenia (ED) Additional Instruction: Contract safety to your self and others Follow-up with psychiatry Follow-up with primary care provider Follow-up with Ernst Baron Return to the emergency department immediately with worsening of symptoms Med/Other Pt SpecificInfo: No Change to Meds, No Meds Exist/No RX given Disposition: 01 DISCHARGE HOME Condition: Stable Xenia Mcleod Jul 24, 2017 14:09
--- NOTE | 2017-07-24 16:11 | PD ---
Physical Exam Time Seen by Provider: 16:10 Narrative ROSALINA Marmolejo has evaluated the patient, lifted Vu act and cleared the patient for discharge. Data Data Last Documented VS Vital Signs Date Time Temp Pulse Resp B/P (MAP) Pulse Ox O2 Delivery O2 Flow Rate FiO2 07/24/17 13:48 84 18 134/76 (95) 98 Room Air 07/24/17 04:18 98.2 Orders Orders Complete Blood Count With Diff (07/24/17 04:05) Basic Metabolic Panel (Bmp) (07/24/17 04:05) Psych Screen (07/24/17 04:05) Drug Screen, Random Urine (07/24/17 04:05) Alcohol (Ethanol) (07/24/17 04:05) Olanzapine Inj (Zyprexa Inj) (07/24/17 04:30) Restraints Violent (07/24/17 05:01) Diet Regular Basic (07/24/17 Breakfast) Diet Regular Basic (07/24/17 Lunch) Diet Regular Basic (07/24/17 Dinner) Labs Laboratory Tests Test 07/24/17 04:10 Urine Opiates Screen NEG Urine Barbiturates Screen NEG Urine Amphetamines Screen NEG Urine Benzodiazepines Screen NEG Urine Cocaine Screen NEG Urine Cannabinoids Screen POS MDM Supervised Visit with KELLY: No Narrative Course ROSALINA Marmolejo has evaluated the patient, lifted the Vu act and cleared the patient for discharge. Patient contracts safety. Denies suicidal or homicidal ideations. Patient will be provided community resource packet to /BETO for follow-up. Has friends and family for support. Patient was medically cleared by alternate provider prior to psych screening. Patient has been evaluated by psychiatry and and is now cleared for discharge. Diagnosis Primary Impression: Schizophrenia, paranoid type Referrals: BETO (Out patient) [facility] Primary Care Physician Psychiatrist [facility] Patient Instructions: General Instructions, Schizophrenia (ED) Additional Instruction: Contract safety to your self and others Follow-up with psychiatry Follow-up with primary care provider Follow-up with Ernst Baron Return to the emergency department immediately with worsening of symptoms Med/Other Pt SpecificInfo: No Change to Meds, No Meds Exist/No RX given Disposition: 01 DISCHARGE HOME Condition: Stable Xenia Mcleod Jul 24, 2017 16:11
--- NOTE | 2017-07-24 16:15 | PD ---
History of Present Illness Chief Complaint: Psychiatric Symptoms Time Seen by Provider: 15:45 Travel History International Travel<30 Days: No Contact w/Intl Traveler<30days: No Known affected area: No Legal Status Legal Status: Vu Act Vu Act Signed By: Aung Atkinson History of Present Illness: 31-year-old with history of schizoaffective disorder presents emergency department under Vu act initiated by law enforcement. The report alleges that he " has been making several disjointed statements and having extreme mood swings. According to his mother he has not been taking his medication for a long time. Patient offered no history when he arrived to the emergency department and was acting in a bizarre manner including hopping on one foot as well as walking around naked. He received ETO of Zyprexa. He was monitored in J pod and presented no behavioral concerns. Electronic medical record is reviewed. Most recent psychiatric hospitalization in June 2017 at [facility]. Patient is seen in J pod with Thiago ROMANO present. The patient is alert and oriented. Dressed in [facility] with appropriate hygiene and grooming. His speech is clear. Patient's mood is angry. He states he doesn't know why he is continuously brought here to [facility]. He reports that he had left his house to go to the store to purchase a soft drink after he had consumed some alcohol. He states that he had placed some online game and a prize but that people in the store did not want to give him his money. The patient at this time is not psychotic, not manic or hypomanic. There is no suicidal or homicidal ideation. He has maintained behavioral control here. Staff were no him from previous admissions report that he is at baseline. The patient is requesting to be discharge. He states that he has medications at home. PFSH Past Medical History Arthritis: No Asthma: Yes (CHILDHOOD) Anxiety: Yes Depression: Yes Heart Rhythm Problems: No High Cholesterol: No Chest Pain: No Congestive Heart Failure: No COPD: No Cerebrovascular Accident: No Diminished Hearing: No Endocrine: No GERD: No Genitourinary: No Hiatal Hernia: No Immune Disorder: No Musculoskeletal: No Neurologic: No Psychiatric: Yes Reproductive: No Respiratory: No Immunizations Current: Yes Migraines: No Schizophrenia: Yes Sleep Apnea: No Ulcer: No Influenza Vaccination: No Past Surgical History Abdominal Surgery: No Cardiac Surgery: No Ear Surgery: No Endocrine Surgery: No Eye Surgery: No Genitourinary Surgery: No Gynecologic Surgery: No Oral Surgery: No Thoracic Surgery: No Other Surgery: Yes (SEE JPOD NOTES) Psychiatric History Psychiatric History Hx Psychiatric Treatment: PATIENT WAS LAST ADMITTED TO [facility] FROM 07/11/17 TO 07/15/17 FOR SCHIZOAFFECTIVE DISORDER. PER GREAT NECK DOCUMENTATION, PATIENT HAS A HISTORY OF NONCOMPLIANCE WITH MEDICATIONS AND OUTPATIENT APPOINTMENTS. History of Inpatient Treatment: Yes Social History Hx Alcohol Use: Yes (SOCC) Hx Tobacco Use: Yes (1 PPD) Hx Substance Use: Yes Substance Use Type: Marijuana Other Substances Used: HX OF PSA Hx of Substance Use Treatment: No Family Psychiatric History Negative. Allergies-Medications (Allergen,Severity, Reaction): Coded Allergies: No Known Allergies (Verified Allergy, Unknown, 07/11/17) Reported Meds & Prescriptions Reported Meds & Active Scripts Active Haloperidol 5 Mg Tab 5 Mg PO BID 15 Days Benztropine (Benztropine Mesylate) 0.5 Mg Tab 0.5 Mg PO BID 15 Days Review of Systems Except as stated in HPI: all other systems reviewed are Neg Mental Status Examination Appearance: Appropriate (In hospital [facility]) Consciousness: Alert Orientation: x4 Motor Activity: Normal gait Speech: Unremarkable Language: Adequate Fund of Knowledge: Adequate Attention and Concentration: Adequate Memory: Unremarkable Mood: Angry Affect: Appropriate Thought Process & Associations: Intact Thought Content: Delusional Hallucination Type: None Delusion Type: Paranoid (that his mother as well as the police antagonize him) Suicidal Ideation: No Suicidal Plan: No Suicidal Intention: No Homicidal Ideation: No Homicidal Plan: No Homicidal Intention: No Insight: Adequate Judgment: Adequate [facility] Medical Decision Making Medical Record Reviewed: Yes Assessment/Plan 31-year-old with history of schizoaffective disorder presents emergency department under Vu act initiated by law enforcement. The report alleges that he " has been making several disjointed statements and having extreme mood swings. According to his mother he has not been taking his medication for a long time. Patient offered no history when he arrived to the emergency department and was acting in a bizarre manner including hopping on one foot as well as walking around naked. He received ETO of Zyprexa. Does not meet Horace act criteria. Is requesting discharge. Has been appropriate here in J pod and has been maintained behavioral control. He is provided psychoeducation and advised follow up with [facility]. Encourage medication compliance.. Lift Horace act. Psychiatrically clear for discharge from ED. Orders Orders Complete Blood Count With Diff (07/24/17 04:05) Basic Metabolic Panel (Bmp) (07/24/17 04:05) Psych Screen (07/24/17 04:05) Drug Screen, Random Urine (07/24/17 04:05) Alcohol (Ethanol) (07/24/17 04:05) Olanzapine Inj (Zyprexa Inj) (07/24/17 04:30) Restraints Violent (07/24/17 05:01) Diet Regular Basic (07/24/17 Breakfast) Diet Regular Basic (07/24/17 Lunch) Diet Regular Basic (07/24/17 Dinner) Results Vital Signs Date Time Temp Pulse Resp B/P (MAP) Pulse Ox O2 Delivery O2 Flow Rate FiO2 07/24/17 13:48 84 18 134/76 (95) 98 Room Air 07/24/17 12:15 84 18 134/76 (95) 98 Room Air 07/24/17 06:00 90 18 129/90 (103) 99 Room Air 07/24/17 04:18 98.2 80 18 139/96 (110) 98 Laboratory Tests Test 07/24/17 04:10 Urine Opiates Screen NEG Urine Barbiturates Screen NEG Urine Amphetamines Screen NEG Urine Benzodiazepines Screen NEG Urine Cocaine Screen NEG Urine Cannabinoids Screen POS Diagnosis Primary Impression: Schizoaffective disorder, bipolar type Psychiatrically Cleared: Yes Referrals: [facility] (Out patient) [facility] Primary Care Physician Psychiatrist [facility] Patient Instructions: General Instructions, Schizophrenia (ED) Additional Instructions: Contract safety to your self and others Follow-up with psychiatry Follow-up with primary care provider Follow-up with [facility] Return to the emergency department immediately with worsening of symptoms Med/ Other Pt Specific Info: No Change to Meds Disposition: 01 DISCHARGE HOME Condition: Stable Francie Alvarado Jul 24, 2017 16:15
== END 2017-07-24 18:02 | disposition home or self-care (01) ==
LOC: NEPD 03:56 → NEPJ 18:02
DX: F20.0 Paranoid schizophrenia (principal); J45.909 Unspecified asthma, uncomplicated; F17.200 Nicotine dependence, unspecified, uncomplicated
CPT/HCPCS: 80307; 96372

== ENCOUNTER 2017-07-27 18:12 | Inpatient (IN) | payer MEDICARE, OTHER ==
[~2017-07-27] VITALS: Ht 167.6 cm; Wt 79.3 kg
--- NOTE | 2017-07-27 18:20 | PD ---
HPI Chief Complaint: BA Time Seen by Provider: 18:15 Travel History International Travel<30 days: No Contact w/Intl Traveler<30days: No Traveled to known affect area: No History of Present Illness HPI 31-year-old male with history of schizophrenia presents under Vu act initiated by the Police Department. Reportedly the patient attempted to walk in front of traffic. He has been noncompliant with his medications. On examination the patient is acutely psychotic, hyperverbal, responding to internal stimuli. He will be administered Zyprexa. On chart review it appears that the patient was seen here 3 days ago for psychiatric evaluation. He was it also admitted on July 11 for psychiatric evaluation. [facility] Past Medical History Arthritis: No Asthma: Yes (CHILDHOOD) Anxiety: Yes Depression: Yes Heart Rhythm Problems: No High Cholesterol: No Chest Pain: No Congestive Heart Failure: No COPD: No Cerebrovascular Accident: No Diminished Hearing: No Endocrine: No GERD: No Genitourinary: No Hiatal Hernia: No Immune Disorder: No Musculoskeletal: No Neurologic: No Psychiatric: Yes Reproductive: No Respiratory: No Immunizations Current: Yes Migraines: No Schizophrenia: Yes Sleep Apnea: No Ulcer: No Past Surgical History Abdominal Surgery: No Cardiac Surgery: No Ear Surgery: No Endocrine Surgery: No Eye Surgery: No Genitourinary Surgery: No Gynecologic Surgery: No Oral Surgery: No Thoracic Surgery: No Other Surgery: Yes (SEE JPOD NOTES) Social History Alcohol Use: Yes (SOCC) Tobacco Use: Yes (1 PPD) Substance Use: Yes Allergies-Medications (Allergen,Severity, Reaction): Coded Allergies: No Known Allergies (Verified Allergy, Unknown, 07/11/17) Reported Meds & Prescriptions Reported Meds & Active Scripts Active Haloperidol 5 Mg Tab 5 Mg PO BID 15 Days Benztropine (Benztropine Mesylate) 0.5 Mg Tab 0.5 Mg PO BID 15 Days Review of Systems ROS Limitations: Psychotic Except as stated in HPI: all other systems reviewed are Neg Physical Exam Exam Limitations: Psychotic Narrative GENERAL: Well-developed well-nourished male who is agitated. SKIN: Warm and dry. HEAD: Atraumatic. Normocephalic. EYES: Pupils equal and round. No scleral icterus. No injection or drainage. ENT: No nasal bleeding or discharge. Mucous membranes pink and moist. NEUROLOGICAL: Awake and alert. No obvious cranial nerve deficits. Motor grossly within normal limits. Normal speech. PSYCHIATRIC: Responding to internal stimuli, hyperverbal, insight and judgment appear limited. Remainder of the examination is refused by the patient. Data Data Last Documented VS Vital Signs Date Time Temp Pulse Resp B/P (MAP) Pulse Ox O2 Delivery O2 Flow Rate FiO2 07/27/17 18:46 83 150/69 (96) 98 Orders Orders Olanzapine Inj (Zyprexa Inj) (07/27/17 18:30) Psych Screen (07/27/17 18:17) Drug Screen, Random Urine (07/27/17 18:17) Restraints Violent (07/27/17 18:34) MDM Medical Decision Making Medical Screen Exam Complete: Yes Emergency Medical Condition: Yes Medical Record Reviewed: Yes Differential Diagnosis Medication noncompliance, schizophrenia, acute psychosis, substance induced mood disorder Narrative Course 31-year-old male with reported history of schizophrenia presents under Vu act for psychiatric evaluation. Zyprexa administered. Mental health screening discussed with the patient. Psychiatric screen ordered. Diagnosis Primary Impression: Medical clearance for psychiatric admission Cristian Rice Jul 27, 2017 18:20
[2017-07-27] MEDS ORDERED: OLANZapine IM 10 MG VIAL IM ONE (18:30)
[2017-07-27 18:46] VITALS: BP 150/69; PULSE 83; O2SAT 98
[2017-07-27] MEDS ORDERED: LORazepam 2 MG/ML VIAL IM ONE (20:15)
[2017-07-27] MEDS ORDERED: diphenhydrAMINE HCL 50 MG/ML VIAL IM ONE (20:15)
[2017-07-27] MEDS ORDERED: ZIPRASIDONE MESYLATE 20 MG VIAL IM ONE (20:15)
[2017-07-27 22:10] VITALS: RESP 22
[2017-07-28 02:00] VITALS: BP 123/81; PULSE 81; RESP 18
[2017-07-28 10:28] VITALS: BP 123/59; PULSE 64; RESP 16; O2SAT 95
[2017-07-28] MEDS ORDERED: diphenhydrAMINE HCL 50 MG/ML VIAL IM ONE (12:30)
[2017-07-28] MEDS ORDERED: ZIPRASIDONE MESYLATE 20 MG VIAL IM ONE ×2 (12:30→12:31)
[2017-07-28] MEDS ORDERED: LORazepam 2 MG/ML VIAL IM ONE (12:30)
[2017-07-28] MEDS ORDERED: diphenhydrAMINE HCL 50 MG/ML VIAL ONE (12:31)
[2017-07-28] MEDS ORDERED: LORazepam 2 MG/ML VIAL ONE (12:31)
[2017-07-28] MEDS ORDERED: ALUMINUM/MAGNESIUM/SIMETH 30 ML CUP PO PRN (13:15)
[2017-07-28] MEDS ORDERED: MAGNESIUM HYDROXIDE SUSP 30 ML CUP PO PRN (13:15)
[2017-07-28] MEDS ORDERED: ACETAMINOPHEN 325 MG TAB PO PRN (13:15)
[2017-07-28] MEDS ORDERED: diphenhydrAMINE HCL 50 MG CAP PO PRN (13:15)
[2017-07-28] MEDS ORDERED: LORazepam 2 MG/ML VIAL IM PRN (13:15)
[2017-07-28] MEDS ORDERED: diphenhydrAMINE HCL 50 MG/ML VIAL IM PRN (13:15)
--- NOTE | 2017-07-28 13:25 | HHI.HP ---
Provisional Diagnosis Admission Date Mallard I. Schizoaffective disorder, bipolar type Certification of Person's Competence To Provide Express and Informed Consent I have personally examined Kevin Alicia , a person being served at [facility] on, Jul 28, 2017 13:11. Express and informed consent means consent voluntarily given in writing, by a competent person, after sufficient explanation and disclosure of the subject matter involved to enable the person to make a knowing and willful decision without any element of force, fraud, deceit, duress, or other form of constraint or coercion. This person is 18 years of age or older, is not now known to be incompetent to consent to treatment with a guardian advocate, and does not have a health care surrogate or proxy currently making medical treatment decisions. I have found this person to be one of the following: [] Competent to provide express and informed consent, as defined above, for voluntary admission to this facility and is competent to provide express and informed consent for treatment. He/she has the consistent capacity to make well reasoned, willful, and knowing decisions concerning his or her medical or mental health treatment. The person fully and consistently understands the purpose of the admission for examination/placement and is fully capable of personally exercising all rights assured [place] [X] Incompetent to provide express and informed consent to voluntary admission, and this is incompetent to provide express and informed consent to treatment. The person must be transferred to involuntary status and a petition for a guardian advocate filed with the Circuit Court. [] Refusing to provide express and informed consent to voluntary admission but is competent to provide express and informed consent for treatment. The person must be discharged or transferred to involuntary status. Form shall be completed within 24 hours of a person's arrival at the receiving facility and filed in the clinical record of each person: 1. Admitted on a voluntary basis 2. Permitted to provide express and informed consent to his/her own treatment 3. Allowed to transfer from involuntary to voluntary status 4. Prior to permitting a person to consent to his or her own treatment after having been previously found incompetent to consent to treatment. History of Present Illness Capacity: Lacks Capacity HPI 31-year-old male brought in under a Vu act for walking in front of traffic. Patient is well known to this physician and the staff in the emergency department and the Department of psychiatry. He has been admitted multiple times, the most recent time being June 2017. He is often noncompliant with his psychotropic medicines and intermittently uses drugs. On this occasion, he is found to be positive for cocaine and cannabinoids. He states he has not been taking his psychotropic medicine lately. However, he is also a very poor historian at this point, demonstrating repeated looseness of associations, becoming highly agitated and striking the hartmann, threatening the emergency department staff, making illogical requests while threatening staff, and appearing to be responding to internal stimuli. He is expressing paranoid ideation that staff are trying to harm him. The patient is requiring intramuscular injections of Geodon, Ativan and Benadryl. Last evening he required Zyprexa. He was placed in locked restraints. Review of Systems ROS Limitations: Clinical Condition Psychiatric: COMPLAINS OF: Agitation, Delusions Except as stated in HPI: all other systems reviewed are Neg Past Psych History Psychological trauma history Unknown Violence risk - others (6 mos) High Violence risk - self (6 mos) High Substance Abuse History Drugs/Alcohol past 12 months History of substance abuse. Currently positive for cocaine and cannabinoids. Past Family Social History Coded Allergies: No Known Allergies (Verified Allergy, Unknown, 07/11/17) Active Scripts Haloperidol (Haloperidol) 5 Mg Tab, 5 MG PO BID for Mental Health for 15 Days, # 30 TAB 1 Refill Prov:Douglas Bauman MD 07/15/17 Benztropine (Benztropine) 0.5 Mg Tab, 0.5 MG PO BID for Side effect management for 15 Days, #30 TAB 1 Refill Prov:Douglas Bauman MD 07/15/17 Family Psych History Unknown. Patient unable to provide a cogent information at this time. Social History Historically, patient has had the support of family members. At this time, it appears his relatives have distanced themselves from him due to his behavior. He continues to use drugs such as cocaine and is noncompliant with his psychotropic medicines. This physician noted on his last admission, he declined long-acting injectable Abilify. He is unemployed and he is disabled from work. He states he is living with his girlfriend. Patient's Strengths (min. 2) Resilient and has access to healthcare. Physical Exam GENERAL: SKIN: Warm and dry. HEAD: Normocephalic. EYES: No scleral icterus. No injection or drainage. NECK: Supple, trachea midline. No JVD or lymphadenopathy. CARDIOVASCULAR: Regular rate and rhythm without murmurs, gallops, or rubs. RESPIRATORY: Breath sounds equal bilaterally. No accessory muscle use. GASTROINTESTINAL: Abdomen soft, non-tender, nondistended. MUSCULOSKELETAL: No cyanosis, or edema. BACK: Nontender without obvious deformity. No CVA tenderness. Vital Signs Vital Signs Date Time Temp Pulse Resp B/P (MAP) Pulse Ox O2 Delivery O2 Flow Rate FiO2 07/28/17 10:28 64 16 123/59 (80) 95 Room Air Mental Status Examination Appearance: Appropriate, Disheveled Consciousness: Alert Orientation: Person, Place Motor Activity: Normal gait Speech: Rapid Language: Adequate Fund of Knowledge: Adequate Attention and Concentration: Inadequate Memory: Impaired Mood: Appropriate Affect: Irritable, Labile Thought Process & Associations: Loose associations Thought Content: Bizarre thinking, Hallucinations, Delusional Hallucination Type: Auditory Delusion Type: Paranoid Suicidal Ideation: No Suicidal Plan: No Suicidal Intention: No Homicidal Ideation: Yes Homicidal Plan: No Homicidal Intention: No Insight: Poor Judgment: Poor Assessment & Plan Problem List: (1) Schizoaffective disorder, bipolar type ICD Codes: F25.0 - Schizoaffective disorder, bipolar type Assessment & Plan Estimated LOS: days. 30-year-old male with history of schizoaffective disorder , bipolar type, noncompliant with medications and recently using cocaine. Patient was walking in traffic, threatening staff, striking hartmann, responding to internal stimuli, demonstrating paranoid delusions and loose associations. For these reasons he is being admitted for further evaluation and treatment. Patient is currently in locked restraints and has received intramuscular Geodon , Benadryl and Ativan. When he is more calm and stable, he is being admitted to our psychotics unit. This physician has ordered a CBC and comprehensive metabolic panel to determine if any infectious process or metabolic process is causing or contributing to his confusion and agitation. Additionally, as the patient is overweight and has a history of taking psychotropic medicines, I am ordering a hemoglobin A1c and a lipid panel to determine if he is at risk for diabetes or hyperlipidemia. Additionally, I have ordered a thyroid-stimulating hormone level, vitamin B-12 and vitamin D levels to determine if deficiencies in these areas are causing or contributing to his psychosis and agitation. Also ordered is an EKG as the patient has been receiving multiple injectable medicines which can alter the conduction system of his heart adversely. This physician has spoken with the patient's nurse regarding his recent behavior. Case management will also be involved to provide further information and assist with disposition planning. Lukas Gunter MD Jul 28, 2017 13:25
[2017-07-28] MEDS ORDERED: MIDAZOLAM HCL 5 MG/ML VIAL (1 ML) IM ONE (15:00)
[2017-07-28 16:41] VITALS: BP 143/104; PULSE 88; RESP 20; TEMP 97.7; O2SAT 98
[2017-07-28 17:17] VITALS: BP 143/104; PULSE 84; RESP 22; TEMP 97.6; O2SAT 98
[2017-07-28 17:18] VITALS: BP 143/104; PULSE 84; RESP 22; TEMP 98.2; O2SAT 98
[2017-07-29 05:51] VITALS: BP 133/74; PULSE 72; RESP 18; TEMP 97; O2SAT 97
[2017-07-29] MEDS ORDERED: ZIPRASIDONE MESYLATE 20 MG VIAL IM ONE (06:30)
[2017-07-29] MEDS ORDERED: ALUMINUM/MAGNESIUM/SIMETH 30 ML CUP PO PRN (12:00)
[2017-07-29] MEDS ORDERED: ACETAMINOPHEN 325 MG TAB PO PRN (12:00)
[2017-07-29] MEDS ORDERED: HALOPERIDOL 5 MG TAB PO SCH (12:00)
[2017-07-29] MEDS: BENZTROPINE MESYLATE 1 MG TAB PO SCH ×2 (12:00→20:25)
[2017-07-29] MEDS ORDERED: MAGNESIUM HYDROXIDE SUSP 30 ML CUP PO PRN (12:00)
[2017-07-29] MEDS ORDERED: HALOPERIDOL LACTATE 5 MG/ML AMP IM PRN (12:00)
[2017-07-29] MEDS ORDERED: LORazepam 2 MG/ML VIAL IM STA (12:06)
[2017-07-29] MEDS ORDERED: HALOPERIDOL LACTATE 5 MG/ML AMP IM STA (12:07)
[2017-07-29] MEDS ORDERED: diphenhydrAMINE HCL 50 MG/ML VIAL IM STA (12:07)
[2017-07-29] MEDS ORDERED: HALOPERIDOL LACTATE 5 MG/ML AMP ONE (12:09)
--- NOTE | 2017-07-29 12:09 | HHI.PYPN ---
Subjective Remarks Above patient initially seen and admitted by Dr. Lukas Gunter his initial psyche eval reviewed and agreed with. Dr. Gunter is also done first opinion petition supporting Vu act and also requested health care surrogate and guardian advocate. I have completed the admission psychiatric template orders. And reviewed the med reconciliation. Patient seen by me on the 2700 unit with nurse Javon. Patient is angry irritable somewhat disorganized. It appears he needed multiple ETO was and was placed in restraints while in the psychiatric emergency pod. He still angry and irritable with me walking away multiple times as I attempted to assess him. Patient is now noted to be quite angry and agitated irritable and intimidating in the day room. I feel this hypertension for him to act out on this at this time thus I'll order Haldol 10 mg Ativan 2 mg Benadryl 50 mg to be given is a when necessary at this time. I did review his past medication history we'll start him on Geodon 40 mg twice a day orally and if refuses to get 10 mg IM in its place. This is a behavior that is quite repetitive with them. He is a chronic abuser of marijuana. And a chronic noncompliant medication since Dr. Gunter has signed first opinion petition supporting Vu act I do agree with him patient does meet criteria for involuntary psychiatric hospitalization under the Vu act thus I'll cosign second opinion petition supporting Vu act Review of Systems Constitutional: DENIES: Diaphoretic episodes, Fatigue, Fever, Weight gain, Weight loss, Chills, Dizziness, Change in appetite, Night Sweats Endocrine: DENIES: Heat/cold intolerance, Polydipsia, Polyuria, Polyphagia Eyes: DENIES: Blurred vision, Diplopia, Eye inflammation, Eye pain, Vision loss , Photosensitivity, Double Vision Ears, nose, mouth, throat: DENIES: Tinnitus, Hearing loss, Vertigo, Nasal discharge, Oral lesions, Throat pain, Hoarseness, Ear Pain, Running Nose, Epistaxis, Sinus Pain, Toothache, Odynophagia Respiratory: DENIES: Apneas, Cough, Snoring, Wheezing, Hemoptysis, Sputum production, Shortness of breath Cardiovascular: DENIES: Chest pain, Palpitations, Syncope, Dyspnea on Exertion , PND, Lower Extremity Edema, Orthopnea, Claudication Gastrointestinal: DENIES: Abdominal pain, Black stools, Bloody stools, Constipation, Diarrhea, Nausea, Vomiting, Difficulty Swallowing, Anorexia Genitourinary: DENIES: Sexual dysfunction, Urinary frequency, Urinary incontinence, Urgency, Hematuria, Dysuria, Nocturia, Penile Discharge, Testicular Pain, Testicular Swelling Musculoskeletal: DENIES: Joint pain, Muscle aches, Stiffness, Joint Swelling, Back pain, Neck pain Integumentary: DENIES: Abnormal pigmentation, Nail changes, Pruritus, Rash Hematologic/lymphatic: DENIES: Bruising, Lymphadenopathy Immunologic/allergic: DENIES: Eczema, Urticaria Neurologic: DENIES: Abnormal gait, Headache, Localized weakness, Paresthesias, Seizures, Speech Problems, Tremor, Poor Balance Psychiatric: COMPLAINS OF: Mood changes, Agitation, Delusions Mental Status Examination Appearance: Appropriate, Disheveled Consciousness: Alert Orientation: Person, Place Motor Activity: Normal gait Speech: Pressured, Rapid Language: Adequate Fund of Knowledge: Adequate Attention and Concentration: Inadequate Memory: Impaired Mood: Appropriate, Angry, Oppositional, Anxious, Irritable Affect: Irritable, Other (increase range of motion intensity) Thought Process & Associations: Loose associations Thought Content: Bizarre thinking, Hallucinations, Delusional Hallucination Type: Auditory Delusion Type: Paranoid Suicidal Ideation: No Suicidal Plan: No Suicidal Intention: No Homicidal Ideation: Yes Homicidal Plan: No Homicidal Intention: No Insight: Poor Judgment: Poor Results Vitals/IOs Vital Signs Date Time Temp Pulse Resp B/P (MAP) Pulse Ox O2 Delivery O2 Flow Rate FiO2 07/29/17 05:51 97.0 72 18 133/74 (93) 97 07/28/17 10:28 Room Air Assessment & Plan Problem List: (1) Schizoaffective disorder, bipolar type ICD Codes: F25.0 - Schizoaffective disorder, bipolar type Assessment & Plan Estimated LOS: days patient psychotic delusional angry and paranoid. Mariana medication adjustments above Justification for Cont. Inpt. At this time patient will decompensate in place to the lower level of care Discharge Planning Discharge planning to become problematic considering this patient's recidivism Request HC Surrog/Guard Advoc?: Yes Joe Lyons MD Jul 29, 2017 12:09
[2017-07-29] MEDS ORDERED: PILL SPLITTER OTHER PRN (12:15)
[2017-07-29] MEDS: ZIPRASIDONE MESYLATE 20 MG VIAL IM SCH (16:00)
[2017-07-29] MEDS: ZIPRASIDONE HCL 40 MG CAP PO SCH (18:00)
[2017-07-30 05:45] VITALS: BP 133/83; PULSE 53; RESP 18; TEMP 96.9; O2SAT 98
[2017-07-30] MEDS: ZIPRASIDONE MESYLATE 20 MG VIAL IM SCH ×2 (07:00→18:00)
[2017-07-30] MEDS: BENZTROPINE MESYLATE 1 MG TAB PO SCH ×2 (08:52→21:07)
[2017-07-30] MEDS: ZIPRASIDONE HCL 40 MG CAP PO SCH ×2 (08:52→18:22)
[2017-07-30 12:04] LABS: AUTOMATED NEUTROPHIL # 3.6 TH/MM3 (1.8-7.7); BASOPHIL % 0.6 % (0.0-2.0); EOSINOPHIL # 0.3 TH/MM3 (0-0.4); EOSINOPHIL % 5.2 % (0.0-4.0); HEMATOCRIT 44.5 % (39.0-51.0); HEMOGLOBIN 15.2 GM/DL (13.0-17.0); LYMPH % 26.3 % (9.0-44.0); LYMPHOCYTE # 1.6 TH/MM3 (1.0-4.8); MEAN CELL VOLUME 88.8 FL (80.0-100.0); MEAN CORPUSCULAR HEMOGLOBIN 30.2 PG (27.0-34.0); MEAN PLATELET VOLUME 8.5 FL (7.0-11.0); MONO % 8.8 % (0.0-8.0); MONOCYTE # 0.5 TH/MM3 (0-0.9); NEUT % 59.1 % (16.0-70.0); PLATELET COUNT 327 TH/MM3 (150-450); RED BLOOD COUNT 5.02 MIL/MM3 (4.50-5.90); RED CELL DISTRIBUTION WIDTH 13.8 % (11.6-17.2)
[2017-07-30 12:27] LABS: ALBUMIN 4.3 GM/DL (3.4-5.0); AST (GOT) 51 U/L (15-37); BICARBONATE 29.2 MEQ/L (21.0-32.0); CALCIUM 9.4 MG/DL (8.5-10.1); CHLORIDE 104 MEQ/L (98-107); GLOMERULAR FILTRATION RATE 121 ML/MIN (>89); GLUCOSE,RANDOM 109 MG/DL (74-106); SODIUM (NA) 140 MEQ/L (136-145)
[2017-07-30 12:28] LABS: CHOLESTEROL 150 MG/DL (120-200)
[2017-07-30 12:34] LABS: ALKALINE PHOSPHATASE 55 U/L (45-117); ALT (GPT) 64 U/L (12-78); BLOOD UREA NITROGEN 7 MG/DL (7-18); CHOLESTEROL/ HDL RATIO 3.13 RATIO; HDL CHOLESTEROL 47.9 MG/DL (40.0-60.0); LDL CHOLESTEROL 85 MG/DL (0-99); TOTAL BILIRUBIN ADULT 0.4 MG/DL (0.2-1.0); TOTAL PROTEIN 7.5 GM/DL (6.4-8.2); TRIGLYCERIDES 88 MG/DL (42-150)
[2017-07-30 14:18] LABS: HEMOGLOBIN A1C 5.4 % (4.3-6.0)
--- NOTE | 2017-07-30 14:52 | HHI.PYPN ---
Subjective Remarks Patient seen in his room with nurse Lila, chart review, patient compliant medications. Patient continues paranoid intense somewhat angry though not as intense or severe as yesterday. He continues to focus on the living arrangements with his mother and how she always Vu act him. For now will continue treatment. Will increase Geodon to 80 mg twice a day Review of Systems Except as stated in HPI: all other systems reviewed are Neg Mental Status Examination Appearance: Appropriate, Disheveled Consciousness: Alert Orientation: Person, Place Motor Activity: Normal gait Speech: Pressured, Rapid Language: Adequate Fund of Knowledge: Adequate Attention and Concentration: Inadequate Memory: Impaired Mood: Appropriate, Angry, Oppositional, Anxious, Irritable Affect: Irritable, Other (increase range of motion intensity) Thought Process & Associations: Loose associations Thought Content: Bizarre thinking, Hallucinations, Delusional Hallucination Type: Auditory Delusion Type: Paranoid Suicidal Ideation: No Suicidal Plan: No Suicidal Intention: No Homicidal Ideation: Yes Homicidal Plan: No Homicidal Intention: No Insight: Poor Judgment: Poor Results Labs Test 07/30/17 11:24 White Blood Count 6.0 TH/MM3 Red Blood Count 5.02 MIL/MM3 Hemoglobin 15.2 GM/DL Hematocrit 44.5 % Mean Corpuscular Volume 88.8 FL Mean Corpuscular Hemoglobin 30.2 PG Mean Corpuscular Hemoglobin Concent 34.0 % Red Cell Distribution Width 13.8 % Platelet Count 327 TH/MM3 Mean Platelet Volume 8.5 FL Neutrophils (%) (Auto) 59.1 % Lymphocytes (%) (Auto) 26.3 % Monocytes (%) (Auto) 8.8 % Eosinophils (%) (Auto) 5.2 % Basophils (%) (Auto) 0.6 % Neutrophils # (Auto) 3.6 TH/MM3 Lymphocytes # (Auto) 1.6 TH/MM3 Monocytes # (Auto) 0.5 TH/MM3 Eosinophils # (Auto) 0.3 TH/MM3 Basophils # (Auto) 0.0 TH/MM3 CBC Comment DIFF FINAL Differential Comment Blood Urea Nitrogen 7 MG/DL Creatinine 0.90 MG/DL Random Glucose 109 MG/DL Total Protein 7.5 GM/DL Albumin 4.3 GM/DL Calcium Level 9.4 MG/DL Alkaline Phosphatase 55 U/L Aspartate Amino Transf (AST/SGOT) 51 U/L Alanine Aminotransferase (ALT/SGPT) 64 U/L Total Bilirubin 0.4 MG/DL Sodium Level 140 MEQ/L Potassium Level 4.1 MEQ/L Chloride Level 104 MEQ/L Carbon Dioxide Level 29.2 MEQ/L Anion Gap 7 MEQ/L Estimat Glomerular Filtration Rate 121 ML/MIN Triglycerides Level 88 MG/DL Cholesterol Level 150 MG/DL LDL Cholesterol 85 MG/DL HDL Cholesterol 47.9 MG/DL Cholesterol/HDL Ratio 3.13 RATIO Vitamin B12 Level 492 PG/ML 25-Hydroxy Vitamin D Total 12.3 ng/ML Thyroid Stimulating Hormone 3rd Gen 1.340 uIU/ML Vitals/IOs Vital Signs Date Time Temp Pulse Resp B/P (MAP) Pulse Ox O2 Delivery O2 Flow Rate FiO2 07/30/17 05:45 96.9 53 18 133/83 (100) 98 07/28/17 10:28 Room Air Assessment & Plan Problem List: (1) Schizoaffective disorder, bipolar type ICD Codes: F25.0 - Schizoaffective disorder, bipolar type Assessment & Plan Estimated LOS: days patient continues psychotic intense irritable and labile. With little insight. See medication adjustment above Justification for Cont. Inpt. At this time patient will decompensate of placed on the lower level of care Discharge Planning Consider discharge back with family Request HC Surrog/Guard Advoc?: Yes Joe Lyons MD Jul 30, 2017 14:52
[2017-07-30] MEDS: LORazepam 1 MG TAB PO PRN ×2 (15:23→21:07)
[2017-07-31 06:05] VITALS: BP 105/67; PULSE 48; RESP 16; TEMP 97; O2SAT 99
[2017-07-31] MEDS: BENZTROPINE MESYLATE 1 MG TAB PO SCH ×2 (09:00→19:53)
[2017-07-31] MEDS: ZIPRASIDONE HCL 40 MG CAP PO SCH ×2 (09:00→19:53)
[2017-07-31] MEDS: ZIPRASIDONE MESYLATE 20 MG VIAL IM SCH ×2 (09:00→18:00)
--- NOTE | 2017-07-31 14:02 | HHI.PYPN ---
Subjective Remarks Patient seen in day room floor staff, chart review, patient compliant medication. Patient continues quite intense intrusive animated with rapid pressured speech status somewhat tangential and circumstantial. He continues to show no insight into his disease not understating at all his behaviors or his mental illness. Review of Systems Except as stated in HPI: all other systems reviewed are Neg Mental Status Examination Appearance: Appropriate, Disheveled Consciousness: Alert Orientation: Person, Place Motor Activity: Normal gait Speech: Pressured, Rapid Language: Adequate Fund of Knowledge: Adequate Attention and Concentration: Inadequate Memory: Impaired Mood: Appropriate, Angry, Oppositional, Anxious, Irritable Affect: Irritable, Other (increase range of motion intensity) Thought Process & Associations: Loose associations Thought Content: Bizarre thinking, Hallucinations, Delusional Hallucination Type: Auditory Delusion Type: Paranoid Suicidal Ideation: No Suicidal Plan: No Suicidal Intention: No Homicidal Ideation: Yes Homicidal Plan: No Homicidal Intention: No Insight: Poor Judgment: Poor Results Vitals/IOs Vital Signs Date Time Temp Pulse Resp B/P (MAP) Pulse Ox O2 Delivery O2 Flow Rate FiO2 07/31/17 06:05 97.0 48 16 105/67 (80) 99 07/28/17 10:28 Room Air Assessment & Plan Problem List: (1) Schizoaffective disorder, bipolar type ICD Codes: F25.0 - Schizoaffective disorder, bipolar type Assessment & Plan Estimated LOS: days patient continues manic psychotic intrusive and delusional , he is compliant medication. For now continue treatment Justification for Cont. Inpt. With this time patient will decompensate if placed in the lower level of care Discharge Planning Possible return to family situation if patient recovers Request HC Surrog/Guard Advoc?: Yes Joe Lyons MD Jul 31, 2017 14:02
[2017-07-31 17:55] VITALS: BP 127/60; PULSE 90; RESP 18; TEMP 98.4; O2SAT 97
[2017-07-31] MEDS: LORazepam 1 MG TAB PO PRN (19:53)
[2017-08-01 05:42] VITALS: BP 129/88; PULSE 92; RESP 16; TEMP 96.3; O2SAT 96
[2017-08-01] MEDS: BENZTROPINE MESYLATE 1 MG TAB PO SCH ×2 (08:35→20:34)
[2017-08-01] MEDS: ZIPRASIDONE HCL 40 MG CAP PO SCH ×2 (08:35→18:00)
[2017-08-01] MEDS: ZIPRASIDONE MESYLATE 20 MG VIAL IM SCH ×2 (08:36→18:00)
--- NOTE | 2017-08-01 15:48 | HHI.PYPN ---
Subjective Remarks Patient seen in day room with nurse Kierra, chart review, patient compliant medication. Staff states patient requested to speak with me through most the day. Now that I'm here patient is angry irritable and refusing to talk with me. Will increase Geodon to 120 mg twice a day Review of Systems Except as stated in HPI: all other systems reviewed are Neg Mental Status Examination Appearance: Appropriate, Disheveled Consciousness: Alert Orientation: Person, Place Motor Activity: Normal gait Speech: Pressured, Rapid Language: Adequate Fund of Knowledge: Adequate Attention and Concentration: Inadequate Memory: Impaired Mood: Appropriate, Angry, Oppositional, Anxious, Irritable Affect: Irritable, Other (increase range of motion intensity) Thought Process & Associations: Loose associations Thought Content: Bizarre thinking, Hallucinations, Delusional Hallucination Type: Auditory Delusion Type: Paranoid Suicidal Ideation: No Suicidal Plan: No Suicidal Intention: No Homicidal Ideation: Yes Homicidal Plan: No Homicidal Intention: No Insight: Poor Judgment: Poor Results Vitals/IOs Vital Signs Date Time Temp Pulse Resp B/P (MAP) Pulse Ox O2 Delivery O2 Flow Rate FiO2 08/01/17 05:42 96.3 92 16 129/88 (102) 96 07/28/17 10:28 Room Air Assessment & Plan Problem List: (1) Schizoaffective disorder, bipolar type ICD Codes: F25.0 - Schizoaffective disorder, bipolar type Assessment & Plan Estimated LOS: days patient continue psychotic paranoid and delusional. More angry with me today. Placement medication adjustments Justification for Cont. Inpt. This time patient decompensated placed on the lower level of care Discharge Planning Considered return home with family Request HC Surrog/Guard Advoc?: Yes Joe Lyons MD Aug 01, 2017 15:48
[2017-08-01 17:07] VITALS: BP 129/72; PULSE 95; RESP 18; TEMP 98.5; O2SAT 97
[2017-08-02 06:06] VITALS: BP 114/75; PULSE 58; RESP 16; TEMP 97.5; O2SAT 98
[2017-08-02] MEDS: BENZTROPINE MESYLATE 1 MG TAB PO SCH ×2 (08:39→20:41)
[2017-08-02] MEDS: ZIPRASIDONE HCL 40 MG CAP PO SCH (08:40)
[2017-08-02] MEDS: ZIPRASIDONE MESYLATE 20 MG VIAL IM SCH ×2 (09:00→17:45)
--- NOTE | 2017-08-02 12:31 | HHI.PYPN ---
Subjective Remarks Pt seen and discussed with staff. Last night he was fixated on grandiose delusions. Today he has been focused on discharge. No aggression or agitation. He is compliant with medications. He has been laying down most of the day and c/ o of dizziness since geodon was increased yesterday to 120mg PO BID. He denies CP, palpitations, SOB, or decrease in exercise tolerance. No SI/HI. Mental Status Examination Appearance: Appropriate, Disheveled Consciousness: Alert Orientation: Person, Place Motor Activity: Normal gait Speech: Unremarkable Language: Adequate Fund of Knowledge: Adequate Attention and Concentration: Inadequate Memory: Unremarkable Mood: Appropriate Affect: Appropriate, Other (increase range of motion intensity) Thought Process & Associations: Loose associations Thought Content: Hallucinations Hallucination Type: Auditory Delusion Type: None Suicidal Ideation: No Suicidal Plan: No Suicidal Intention: No Homicidal Ideation: Yes Homicidal Plan: No Homicidal Intention: No Insight: Poor Judgment: Poor Results Vitals/IOs Vital Signs Date Time Temp Pulse Resp B/P (MAP) Pulse Ox O2 Delivery O2 Flow Rate FiO2 08/02/17 06:06 97.5 58 16 114/75 (88) 98 Assessment & Plan Problem List: (1) Schizoaffective disorder, bipolar type ICD Codes: F25.0 - Schizoaffective disorder, bipolar type Assessment & Plan Pt improving, but not tolerating high dose geodon. Will lower medication dose. Possibly consider addition of second mood stabilizer if needed. Estimated LOS: days Justification for Cont. Inpt. medication changes requiring monitoring. Request HC Surrog/Guard Advoc?: Yes Moraima Mejia MD Aug 02, 2017 12:31
[2017-08-02 17:11] VITALS: BP 118/81; PULSE 76; RESP 16; TEMP 97.4; O2SAT 99
[2017-08-02] MEDS: ZIPRASIDONE HCL 80 MG CAP PO SCH (17:44)
[2017-08-03] MEDS: ZIPRASIDONE HCL 80 MG CAP PO SCH ×2 (08:23→18:06)
[2017-08-03] MEDS: BENZTROPINE MESYLATE 1 MG TAB PO SCH ×2 (08:23→21:00)
[2017-08-03] MEDS: ZIPRASIDONE MESYLATE 20 MG VIAL IM SCH ×2 (09:00→18:00)
--- NOTE | 2017-08-03 11:07 | HHI.PYPN ---
Subjective Remarks Pt seen and discussed with staff. Last night he c/o of some hallucinations. Today he denies AVH. He has been out in milieu participating in activities. No behavioral problems on the unit or agitation. He reports that dizziness and lightheadness resolved with lowering geodon dosage. He has been compliant with care. Mental Status Examination Appearance: Appropriate, Disheveled Consciousness: Alert Orientation: Person, Place Motor Activity: Normal gait Speech: Unremarkable Language: Adequate Fund of Knowledge: Adequate Attention and Concentration: Inadequate Memory: Unremarkable Mood: Appropriate Affect: Appropriate, Other (increase range of motion intensity) Thought Process & Associations: Tangential Thought Content: Appropriate Hallucination Type: None Delusion Type: None Suicidal Ideation: No Suicidal Plan: No Suicidal Intention: No Homicidal Ideation: Yes Homicidal Plan: No Homicidal Intention: No Insight: Fair Judgment: Impulsive Results Vitals/IOs Vital Signs Date Time Temp Pulse Resp B/P (MAP) Pulse Ox O2 Delivery O2 Flow Rate FiO2 08/02/17 17:11 97.4 76 16 118/81 (93) 99 Assessment & Plan Problem List: (1) Schizoaffective disorder, bipolar type ICD Codes: F25.0 - Schizoaffective disorder, bipolar type Assessment & Plan Pt is improving. Continue current tx plan. Estimated LOS: days Justification for Cont. Inpt. risk of decompensation Request HC Surrog/Guard Advoc?: Yes Moraima Mejia MD Aug 03, 2017 11:07
[2017-08-03 17:50] VITALS: BP 130/74; PULSE 69; RESP 16; TEMP 96.4; O2SAT 99
[2017-08-04 06:14] VITALS: BP 129/80; PULSE 55; RESP 17; TEMP 97.9; O2SAT 95
[2017-08-04] MEDS: ZIPRASIDONE HCL 80 MG CAP PO SCH (09:00)
[2017-08-04] MEDS: ZIPRASIDONE MESYLATE 20 MG VIAL IM SCH (09:00)
[2017-08-04] MEDS: BENZTROPINE MESYLATE 1 MG TAB PO SCH (09:00)
[2017-08-04] MEDS ORDERED: BENZ0.5T PO (11:59)
[2017-08-04] MEDS ORDERED: GEOD80CA PO (11:59)
--- NOTE | 2017-08-04 12:03 | HHI.DS ---
Psychiatry Discharge Summary Inpatient Psychiatric care?: Yes Advance Directive: No Reason Not Provided: PATIENT DOES NOT WANT ONE Mental Health AdvanceDirective: No Health Care Proxy: No Admission Admission Date Jul 28, 2017 at 13:09 Admission Diagnosis: (1) Schizoaffective disorder, bipolar type ICD Code: F25.0 - Schizoaffective disorder, bipolar type Brief History 31-year-old male brought in under a BooRah act for walking in front of traffic. Patient is well known to this physician and the staff in the emergency department and the Department of psychiatry. He has been admitted multiple times, the most recent time being June 2017. He is often noncompliant with his psychotropic medicines and intermittently uses drugs. On this occasion, he is found to be positive for cocaine and cannabinoids. He states he has not been taking his psychotropic medicine lately. However, he is also a very poor historian at this point, demonstrating repeated looseness of associations, becoming highly agitated and striking the hartmann, threatening the emergency department staff, making illogical requests while threatening staff, and appearing to be responding to internal stimuli. He is expressing paranoid ideation that staff are trying to harm him. The patient is requiring intramuscular injections of Geodon, Ativan and Benadryl. Last evening he required Zyprexa. He was placed in locked restraints. Tobacco Use In Past 30 Days: 5 or More Cigarettes/Day Alcohol Use: Monthly or Less Hospital Course Patient showed good behavior throughout this hospitalization. Though he initially was quite intense vigilant and intrusive he was redirectable. And he was compliant with his medication. It appears had a fairly good weekend though he did complaints at Dr. Mejia with increased Geodon was too much and she returned it to 80 mg twice a day which he is tolerating. Today patient is calmer his speech is less rapid less pressured more focused less remains a mild grandiosity with her. He denies suicidality homicidality voices or visions. He states to be going back to live with his mother. At this time he no longer meets Vu act criteria to be kept involuntarily under the BooRah act. He does wish to be discharged. Thus I'll discharge him today with Rx 1 month follow- up [facility] outpatient medication management services Results Blood Pressure 129 / 80 Vital Signs Date Time Temp Pulse Resp B/P (MAP) Pulse Ox O2 Delivery O2 Flow Rate FiO2 08/04/17 06:14 97.9 55 17 129/80 (96) 95 Laboratory Results Test 07/30/17 11:24 Cholesterol Level 150 MG/DL (120-200) HDL Cholesterol 47.9 MG/DL (40.0-60.0) Hemoglobin A1c 5.4 % (4.3-6.0) LDL Cholesterol 85 MG/DL (0-99) Triglycerides Level 88 MG/DL (42-150) Summary of Procedures None done Pending results at discharge: No Medications # of Antipsychotic meds at D/C: 1 Approp Antipsych med options 1 - Minimum of three failed multiple trials of monotherapy. 2 - Documented plan to taper to monotherapy due to previous use of multiple meds OR cross-taper in progress at D/C. 3 - Documentation of augmentation of Clozapine. 4 - Justification other than those listed in allowable values 1-3, document here : Discharge Discharge Date: Aug 04, 2017 Discharge Diagnosis: (1) Schizoaffective disorder, bipolar type Diagnosis: Principal ICD Code: F25.0 - Schizoaffective disorder, bipolar type Pt Condition on Discharge: Stable Discharge Disposition: Discharge Home Discharge Instructions Diet Instructions: As Tolerated, No Restrictions Activities you can perform: Regular-No Restrictions Scheduled Appointment: Manny Vidal Appointment Date: Aug 05, 2017 Appointment Time: 730 Discharge Time > 30 minutes Mental Status Examination Appearance: Appropriate, Disheveled Consciousness: Alert Orientation: Person, Place Motor Activity: Normal gait Speech: Unremarkable Language: Adequate Fund of Knowledge: Adequate Attention and Concentration: Inadequate Memory: Unremarkable Mood: Appropriate Affect: Appropriate, Other (increase range of motion intensity) Thought Process & Associations: Tangential Thought Content: Appropriate Hallucination Type: None Delusion Type: None Suicidal Ideation: No Suicidal Plan: No Suicidal Intention: No Homicidal Ideation: Yes Homicidal Plan: No Homicidal Intention: No Insight: Fair Judgment: Impulsive Discharge/Advance Care Plan Health Problems: (1) Schizoaffective disorder, bipolar type Goals to promote your health * To prevent worsening of your condition and complications * To maintain your health at the optimal level Directions to meet your goals Take your medications as prescribed Follow your dietary instruction Follow activity as directed Keep your appointments as scheduled Take your immunizations and boosters as scheduled If your symptoms worsen call your PCP, if no PCP go to Urgent Care Center or Emergency Room For 10/02 questions related to your inpatient stay or results of tests pending at discharge, please contact Dr. Joe Lyons at Smoking is Dangerous to Your Health. Avoid second hand smoking Joe Lyons MD Aug 04, 2017 12:03
== END 2017-08-04 13:00 | disposition home or self-care (01) | DRG 885 ==
LOC: NEPJ 18:12 → NEDA 07-28 13:09 → H270 07-28 16:37
PROVIDERS: ADMIT Psychiatry & Neurology Psychiatry; ATTEND Psychiatry & Neurology Psychiatry
DX: F25.0 Schizoaffective disorder, bipolar type (principal); Z78.1 Physical restraint status; F12.10 Cannabis abuse, uncomplicated; F17.210 Nicotine dependence, cigarettes, uncomplicated; F41.9 Anxiety disorder, unspecified; R42 Dizziness and giddiness; Z91.14 Patient's other noncompliance with medication regimen; T43.595A Adverse effect of other antipsychotics and neuroleptics, initial encounter
CPT/HCPCS: 80053; 80061; 82306; 82607; 83036; 84443; 85025; 96372; J1200; J1630; J2060; J3486

== ENCOUNTER 2017-09-05 11:53 | Emergency (ER) | payer MEDICARE, OTHER ==
[~2017-09-05] VITALS: Ht 175.3 cm; Wt 100.0 kg
[~2017-09-05 11:53] MED LIST changes: +GEOD80CA PO; -HALO5TAB PO
[2017-09-05] MEDS ORDERED: diphenhydrAMINE HCL 50 MG/ML VIAL ONE (12:30)
[2017-09-05] MEDS ORDERED: HALOPERIDOL LACTATE 5 MG/ML AMP ONE (12:30)
[2017-09-05] MEDS ORDERED: LORazepam 2 MG/ML VIAL IM ONE (12:30)
[2017-09-05] MEDS ORDERED: diphenhydrAMINE HCL 50 MG/ML VIAL IM ONE (12:30)
[2017-09-05] MEDS ORDERED: HALOPERIDOL LACTATE 5 MG/ML AMP IM ONE (12:30)
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
[2017-09-05 14:56] LABS: AUTOMATED NEUTROPHIL # 8.2 TH/MM3 (1.8-7.7); BASOPHIL # 0.1 TH/MM3 (0-0.2); BASOPHIL % 0.8 % (0.0-2.0); EOSINOPHIL # 0.1 TH/MM3 (0-0.4); EOSINOPHIL % 0.5 % (0.0-4.0); HEMATOCRIT 46.7 % (39.0-51.0); HEMOGLOBIN 15.9 GM/DL (13.0-17.0); LYMPH % 25.4 % (9.0-44.0); LYMPHOCYTE # 3.3 TH/MM3 (1.0-4.8); MEAN CELL VOLUME 87.4 FL (80.0-100.0); MEAN CORPUSCULAR HEMOGLOBIN 29.8 PG (27.0-34.0); MEAN CORPUSCULAR HGB CONC 34.1 % (32.0-36.0); MEAN PLATELET VOLUME 7.8 FL (7.0-11.0); MONO % 10.4 % (0.0-8.0); MONOCYTE # 1.4 TH/MM3 (0-0.9); NEUT % 62.9 % (16.0-70.0); PLATELET COUNT 378 TH/MM3 (150-450); RED BLOOD COUNT 5.35 MIL/MM3 (4.50-5.90); RED CELL DISTRIBUTION WIDTH 13.8 % (11.6-17.2); WHITE BLOOD COUNT 13.1 TH/MM3 (4.0-11.0)
[2017-09-05 15:21] LABS: ALBUMIN 4.7 GM/DL (3.4-5.0); ALKALINE PHOSPHATASE 66 U/L (45-117); ALT (GPT) 49 U/L (12-78); AST (GOT) 69 U/L (15-37); BICARBONATE 27.1 MEQ/L (21.0-32.0); BLOOD UREA NITROGEN 17 MG/DL (7-18); CALCIUM 9.3 MG/DL (8.5-10.1); CHLORIDE 102 MEQ/L (98-107); GLOMERULAR FILTRATION RATE 107 ML/MIN (>89); GLUCOSE,RANDOM 85 MG/DL (74-106); SODIUM (NA) 136 MEQ/L (136-145); TOTAL BILIRUBIN ADULT 0.7 MG/DL (0.2-1.0); TOTAL PROTEIN 8.7 GM/DL (6.4-8.2)
[2017-09-05 15:50] LABS: ACETAMINOPHEN LESS THAN 2.0 MCG/ML (10.0-30.0)
--- NOTE | 2017-09-05 17:09 | RADRPT ---
EXAM DATE/TIME: 09/05/2017 17:01 [place] COMPARISON: CT BRAIN W/O CONTRAST, November 10, 2014, 16:46. INDICATIONS : AMS. RADIATION DOSE: 41.26 CTDIvol (mGy) MEDICAL HISTORY : Cardiovascular disease. Seizures. schizophrenia , [place] unknown type SURGICAL HISTORY : None. ENCOUNTER: Initial ACUITY: 1 day PAIN SCALE: 6/10 LOCATION: Right TECHNIQUE: Multiple contiguous axial images were obtained of the head. Using automated exposure control and adjustment of the mA and/or kV according to patient size, radiation dose was kept as low as reasonably achievable to obtain optimal diagnostic quality images. DICOM format image data is av ailable electronically for review and comparison. FINDINGS: CEREBRUM: The ventricles are normal for age. No evidence of midline shift, mass lesion, hemorrha ge or acute infarction. No extra-axial fluid collections are seen. POSTERIOR FOSSA: The cerebellum and brainstem are intact. The 4th ventricle is midline. The cer ebellopontine angle is unremarkable. EXTRACRANIAL: The visualized portion of the orbits is intact. SKULL: The calvaria is intact. No evidence of skull fracture. CONCLUSION: Negative for acute process. Bimal Faria MD FACR on September 05, 2017 at 17:06 Board Certified Radiologist. This report was verified electronically.
[2017-09-05 18:20] VITALS: BP 119/73; PULSE 86; RESP 16; TEMP 98.6; O2SAT 100
[2017-09-05 19:48] VITALS: RESP 17; TEMP 98.8; O2SAT 98
[2017-09-05 23:22] VITALS: BP 138/72; PULSE 86; RESP 16; TEMP 98.2; O2SAT 98
[2017-09-06 02:31] VITALS: BP 140/64; PULSE 84; RESP 18; TEMP 98.2; O2SAT 99
== END 2017-09-06 10:31 | disposition home or self-care (01) ==
LOC: NEDAMB 11:53 → NEPJ 09-06 10:31
DX: Z02.89 Encounter for other administrative examinations (principal); F20.9 Schizophrenia, unspecified; F41.8 Other specified anxiety disorders; F17.200 Nicotine dependence, unspecified, uncomplicated; Z79.899 Other long term (current) drug therapy; Z87.09 Personal history of other diseases of the respiratory system; W22.09XA Striking against other stationary object, initial encounter; Y92.238 Other place in hospital as the place of occurrence of the external cause
CPT/HCPCS: 70450; 80053; 80307; 85025; 96372; 99285; J1200; J1630; J2060

== ENCOUNTER 2017-09-12 15:26 | Emergency (ER) | payer MEDICARE, OTHER ==
[~2017-09-12] VITALS: Ht 167.6 cm; Wt 79.3 kg
[2017-09-12] MEDS ORDERED: HALOPERIDOL LACTATE 5 MG/ML AMP IM ONE (16:45)
[2017-09-12] MEDS ORDERED: HALOPERIDOL 10 MG TAB PO ONE (16:45)
[2017-09-12] MEDS ORDERED: LORazepam 2 MG TAB PO ONE (16:45)
[2017-09-12] MEDS ORDERED: LORazepam 2 MG/ML VIAL IM ONE (16:45)
[2017-09-12 16:46] VITALS: BP 141/82; PULSE 107; RESP 18; TEMP 98.7; O2SAT 96
--- NOTE | 2017-09-12 17:17 | PD ---
HPI Chief Complaint: Psychiatric Symptoms Time Seen by Provider: 16:01 Travel History International Travel<30 days: No Contact w/Intl Traveler<30days: No Traveled to known affect area: No History of Present Illness HPI 31-year-old male presents to emergency department under Vu act. According to emergency room staff the patient is well-known to the emergency department psych dept. per law-enforcement Vu act report the patient "has been diagnosed with schizophrenia in 2006. His mother stated that he is off his medications. Today's date that Opal Alicia became angry and told his mother I can kill you. His mother stated since 2006 he has fits of rage and breaks windows and becomes angry. His mother Benjamin Alicia became afraid after he made the above-mentioned statement to her." On my examination the patient is making bizarre statements and saying bizarre things. He denies making any statements that he wants to kill his mother. He denies being suicidal or homicidal. He denies visual or auditory hallucinations. Denies illicit drug use or alcohol use. Symptoms are mild to severe in severity. No known aggravating or relieving factors. Onset unknown. Duration unknown. No known allergies. Has no other medical complaints. No other modifying factors or associated signs and symptoms. PFSH Past Medical History Asthma: Yes (CHILDHOOD) Anxiety: Yes Depression: Yes Cerebrovascular Accident: No Diabetes: No Diminished Hearing: No GERD: No Psychiatric: Yes Immunizations Current: Yes Schizophrenia: Yes Past Surgical History Abdominal Surgery: No Cardiac Surgery: No Ear Surgery: No Endocrine Surgery: No Eye Surgery: No Genitourinary Surgery: No Gynecologic Surgery: No Oral Surgery: No Thoracic Surgery: No Other Surgery: Yes (SEE JPOD NOTES) Social History Alcohol Use: Yes (SOCC) Tobacco Use: Yes (1 PPD) Substance Use: Yes (HX: PSA) Allergies-Medications (Allergen,Severity, Reaction): Coded Allergies: No Known Allergies (Verified Allergy, Unknown, 07/11/17) Reported Meds & Prescriptions Reported Meds & Active Scripts Active Geodon (Ziprasidone) 80 Mg Cap 80 Mg PO BIDPC Benztropine (Benztropine Mesylate) 0.5 Mg Tab 0.5 Mg PO BID 15 Days Review of Systems Except as stated in HPI: all other systems reviewed are Neg Physical Exam Narrative GENERAL: Well-nourished, well-developed black male patient, in no acute distress SKIN: Warm and dry. HEAD: Atraumatic. Normocephalic. EYES: Pupils equal and round. ENT: Mucosa pink and moist. NECK: Supple. Trachea midline. CARDIOVASCULAR: Regular rate and rhythm. No murmur appreciated. RESPIRATORY: No accessory muscle use. Clear to auscultation. Breath sounds equal bilaterally. GASTROINTESTINAL: Abdomen soft, non-tender, nondistended. Hepatic and splenic margins not palpable. Bowel sounds are active 4 quadrants. MUSCULOSKELETAL: No obvious deformities. No clubbing. No cyanosis. No edema. NEUROLOGICAL: Awake and alert. Oriented 3. No obvious cranial nerve deficits. Motor grossly within normal limits. Normal speech. Moves all extremities. 5/5 strength to all extremities. PSYCHIATRIC: Acting bizzare and saying bizarre statements. Data Data Last Documented VS Vital Signs Date Time Temp Pulse Resp B/P (MAP) Pulse Ox O2 Delivery O2 Flow Rate FiO2 09/12/17 16:46 98.7 107 18 141/82 (101) 96 Room Air Orders Orders Diet Regular Basic (09/12/17 Dinner) Complete Blood Count With Diff (09/12/17 16:01) Comprehensive Metabolic Panel (09/12/17 16:01) Thyroid Stimulating Hormone (09/12/17 16:01) Psych Screen (09/12/17 16:01) Drug Screen, Random Urine (09/12/17 16:01) Alcohol (Ethanol) (09/12/17 16:01) Salicylates (Aspirin) (09/12/17 16:01) Tylenol (Acetaminophen) (09/12/17 16:01) Lorazepam Inj (Ativan Inj) (09/12/17 16:45) Haloperidol Inj (Haldol Inj) (09/12/17 16:45) Lorazepam (Ativan) (09/12/17 16:45) Haloperidol (Haldol) (09/12/17 16:45) MDM Medical Decision Making Medical Screen Exam Complete: Yes Emergency Medical Condition: Yes Medical Record Reviewed: Yes Differential Diagnosis Schizophrenia, homicidal ideation, paranoia, medical clearance for psychiatric admission Narrative Course Patient presents under a Vu act. Physical examination and vital signs are essentially unremarkable. Patient has no medical complaints to report. Psych screen has been ordered. If the laboratory results are unremarkable, the patient will be medically cleared for psychiatric evaluation and disposition. Diagnosis Primary Impression: Medical clearance for psychiatric admission Condition: Stable Xenia Mcleod Sep 12, 2017 17:17
[2017-09-12 22:37] VITALS: BP 116/59; PULSE 72; RESP 17; TEMP 97.1; O2SAT 98
[2017-09-13 05:45] VITALS: BP 130/88; PULSE 70; RESP 18; TEMP 98.2; O2SAT 100
--- NOTE | 2017-09-13 08:24 | PD ---
Physical Exam Time Seen by Provider: 08:23 Narrative Patient is being transferred to the [facility] by our transport team. Data Data Last Documented VS Vital Signs Date Time Temp Pulse Resp B/P (MAP) Pulse Ox O2 Delivery O2 Flow Rate FiO2 09/13/17 05:45 98.2 70 18 130/88 (102) 100 Room Air Orders Orders Diet Regular Basic (09/12/17 Dinner) Complete Blood Count With Diff (09/12/17 16:01) Comprehensive Metabolic Panel (09/12/17 16:01) Thyroid Stimulating Hormone (09/12/17 16:01) Psych Screen (09/12/17 16:01) Drug Screen, Random Urine (09/12/17 16:01) Alcohol (Ethanol) (09/12/17 16:01) Salicylates (Aspirin) (09/12/17 16:01) Tylenol (Acetaminophen) (09/12/17 16:01) Lorazepam Inj (Ativan Inj) (09/12/17 16:45) Haloperidol Inj (Haldol Inj) (09/12/17 16:45) Lorazepam (Ativan) (09/12/17 16:45) Haloperidol (Haldol) (09/12/17 16:45) Restraints Violent (09/12/17 17:32) Diet Regular Basic (09/13/17 Breakfast) Haloperidol (Haldol) (09/13/17 08:30) Lorazepam (Ativan) (09/13/17 08:30) Ed Discharge Order (09/13/17 08:22) Labs Laboratory Tests Test 09/12/17 16:05 Urine Opiates Screen NEG Urine Barbiturates Screen NEG Urine Amphetamines Screen POS Urine Benzodiazepines Screen NEG Urine Cocaine Screen NEG Urine Cannabinoids Screen POS MDM Supervised Visit with KELLY: No Narrative Course Patient is being transferred to the [facility] by our transport team. Diagnosis Primary Impression: Medical clearance for psychiatric admission Disposition: 65 DISC TO PSYCH CARE FACILITY Condition: Stable Xenia Mcleod Sep 13, 2017 08:24
[2017-09-13] MEDS ORDERED: HALOPERIDOL 10 MG TAB PO ONE (08:30)
[2017-09-13] MEDS ORDERED: LORazepam 2 MG TAB PO ONE (08:30)
== END 2017-09-13 08:58 ==
LOC: NEDAMB 15:26 → NEPJ 09-13 08:58
DX: F20.9 Schizophrenia, unspecified (principal); F15.10 Other stimulant abuse, uncomplicated; F12.10 Cannabis abuse, uncomplicated; J45.909 Unspecified asthma, uncomplicated; F41.9 Anxiety disorder, unspecified; F32.9 Major depressive disorder, single episode, unspecified; F17.200 Nicotine dependence, unspecified, uncomplicated; Z79.899 Other long term (current) drug therapy
CPT/HCPCS: 80307; 99285

== ENCOUNTER 2017-10-07 18:18 | Emergency (ER) | payer MEDICARE, OTHER ==
--- NOTE | 2017-10-07 18:39 | PD ---
HPI Chief Complaint: Laceration/Skin Injury Time Seen by Provider: 18:35 Travel History International Travel<30 days: No Contact w/Intl Traveler<30days: No History of Present Illness HPI 31 YO M presents to the ED under custody of ROMAN for evaluation of laceration of the right hand. The patient states that the cut was sustained when he attempted to take a piece of plastic from a female. This event is what led to his arrest. He denies numbness, tingling, weakness, limited ROM of the extremity. He is unsure of his tetanus status. He refuses tetanus update. No other somatic complains. PFSH Past Medical History Asthma: Yes (CHILDHOOD) Anxiety: Yes Depression: Yes Cerebrovascular Accident: No Diabetes: No Diminished Hearing: No GERD: No Psychiatric: Yes Immunizations Current: Yes Schizophrenia: Yes Past Surgical History Abdominal Surgery: No Cardiac Surgery: No Ear Surgery: No Endocrine Surgery: No Eye Surgery: No Genitourinary Surgery: No Gynecologic Surgery: No Oral Surgery: No Thoracic Surgery: No Other Surgery: Yes Social History Alcohol Use: Yes (SOC) Tobacco Use: Yes (1 PPD) Substance Use: Yes (marijuana, amphetamines) Allergies-Medications (Allergen,Severity, Reaction): Coded Allergies: No Known Allergies (Verified Allergy, Unknown, 07/11/17) Reported Meds & Prescriptions Reported Meds & Active Scripts Active Geodon (Ziprasidone) 80 Mg Cap 80 Mg PO BIDPC Benztropine (Benztropine Mesylate) 0.5 Mg Tab 0.5 Mg PO BID 15 Days Review of Systems Except as stated in HPI: all other systems reviewed are Neg Physical Exam Narrative GENERAL: Well-nourished, well-developed AA male in NAD.. SKIN: Focused skin assessment warm/dry. HEAD: Normocephalic. EYES: No scleral icterus. No injection or drainage. NECK: Supple, trachea midline. No JVD or lymphadenopathy. CARDIOVASCULAR: Regular rate and rhythm without murmurs, gallops, or rubs. RESPIRATORY: Breath sounds equal bilaterally. No accessory muscle use. GASTROINTESTINAL: Abdomen soft, non-tender, nondistended. MUSCULOSKELETAL: No cyanosis, or edema. FOCUSED RIGHT UPPER EXTREMITY EXAM: 2+ radial pulse. 3 small, superficial lacerations of the palm and thumb. NO active bleeding.Patient retains full, active, painless ROM of the digits of the hand. Neurovascularly intact distally. BACK: Nontender without obvious deformity. No CVA tenderness. Data Data Orders Orders Ed Discharge Order (10/07/17 18:40) MDM Medical Decision Making Medical Screen Exam Complete: Yes Emergency Medical Condition: Yes Differential Diagnosis laceration versus abrasion versus need for tetanus immunization versus other Narrative Course 31 YO M presents to the ED under custody of ROMAN for evaluation of laceration of the right hand. The patient states that the cut was sustained when he attempted to take a piece of plastic from a female. This event is what led to his arrest. He denies numbness, tingling, weakness, limited ROM of the extremity. He is unsure of his tetanus status. He refuses tetanus update. No other somatic complains. Vitals reviewed. On exam the patient has 3 small superficial lacerations of the palmar aspect of the right hand and thumb. No active bleeding. I don't think sutures are indicated. Patient refuses tetanus immunization. He is medically cleared for discharge to law enforcement. Diagnosis Primary Impression: Superficial laceration of right hand Qualified Codes: S61.411A - Laceration without foreign body of right hand, initial encounter Referrals: Primary Care Physician Additional Instructions: Keep the wounds clean and dry. Monitor for signs of infection such as discharge, redness, fevers. Follow up with the primary care provider. Return to the ED for any urgent or emergent medical condition. Disposition: [address] LAW ENFORCEMNT Condition: Stable Meghna Navarro Oct 07, 2017 18:39
[2017-10-07 18:50] VITALS: BP 178/89; PULSE 78; RESP 18; TEMP 98.3; O2SAT 100
== END 2017-10-07 19:31 ==
LOC: NEPK 18:18
DX: S61.411A Laceration without foreign body of right hand, initial encounter (principal); W45.8XXA Other foreign body or object entering through skin, initial encounter
CPT/HCPCS: 99281